=== PATIENT | male | born 2000 | race Caucasian/White ===

== ENCOUNTER 2020-03-09 22:33 | Emergency (ER) | payer MEDICAID, OTHER, SELFPAY ==
--- NOTE | 2020-03-09 22:35 | ED_ITS ---
HPI - URI/Sore Throat General: Stated Complaint: lost of taste Time Seen by Provider: 03/09/20 22:34 Source: patient Mode of arrival: ambulatory Limitations: no limitations History of Present Illness: HPI Narrative: 20-year-old male states that over last 2 to 3 days has had a slight cough low-grade fevers no loss of's taste and smell. He states his girlfriend was recently tested for Covid and has not had the results but she has had the same symptoms. Patient here is resting comfortably and has no other complaints at this time. Associated symptoms: Deny abdominal pain, chills, chest pain, diarrhea, fever(s), headache(s), nausea or vomiting Review of Systems Const: Denies: fever(s), chills, body aches or change in appetite Eyes: Denies: blurry vision or eye discomfort ENMT: Denies: throat pain or dental pain Card: Denies: chest pain Resp: Reports: non-productive cough; Denies: dyspnea GI: Denies: abdominal pain, nausea, vomiting or diarrhea : Denies: dysuria Musc: Denies: neck pain or back pain Skin/Breast: Denies: rash Neuro: Denies: headache(s) Psych: Denies: depression David/Lymph: Denies: easy bruising All/Imm: Denies: urticaria Physical Exam Const: COMMON NORMALS: no acute distress, patient oriented x3 and healthy appearing HENMT: COMMON NORMALS: normocephalic and atraumatic HEAD & SCALP: normocephalic and atraumatic Eye: COMMON NORMALS: Equal, round and reactive pupils present and EOMs intact bilaterally PUPIL: Yes Equal, round and reactive pupils present Neck/C-Spine: COMMON NORMALS: full ROM and supple Chest: COMMONS NORMALS: normal inspection of the chest and normal palpation of entire chest wall Resp: COMMON NORMALS: normal respiratory effort, No retractions, No use of accessory muscles and clear to auscultation bilaterally AUSCULTATION: clear to auscultation bilaterally Cardio: COMMON NORMALS: regular rate, regular rhythm and No murmurs present (Cardio) RATE: regular rate RHYTHM: regular rhythm GI: COMMON NORMALS: Normal to inspection, nondistended, normoactive bowel sounds present, Soft to palpation, non-tender and no masses PALPATION: Yes Soft to palpation Extremity: COMMON NORMALS: normal to inspection and full ROM Neuro: COMMON NORMALS: patient oriented x3, moves all extremities and no focal motor deficits Psych: COMMON NORMALS: mental status grossly normal, Normal thought process present and cooperative THOUGHT PROCESS: Normal thought process present Skin: COMMON NORMALS: no rashes or lesions noted and no wounds GENERAL SKIN EXAM: no rashes or lesions noted MDM - URI/Sore Throat MDM Narrative: Medical decision making narrative: Israel presents here with Covid-like symptoms. He is well-appearing here and in no distress. Will do a quest swab and he is stable for discharge. He is to follow-up with PCP and self quarantine. Discharge Plan Discharge Patient Disposition: Home Clinical Impression: Suspected 2019-nCoV infection Condition: Stable Discharge Orders: Discharge Order (Routine); Ordered 03/09/20 Ordered By: Brielle Guerra Referrals: Mingo Palmer MD [Family Provider] - 1-3 days Discharge Diet: Advance as tolerated Discharge Activity: Resume usual activity Patient Instructions: Upper Respiratory Infection (ED) Coding Level of Care Code ED Stripper Apprentice for Eyad Garcia
[2020-03-09 22:42] VITALS: BP 149/93; PULSE 79; RESP 18; TEMP 36.6; O2SAT 98; BMI 37.3
[2020-03-09 22:53] VITALS: O2SAT 98
[2020-03-11 23:43] LABS: Quest SARS-CoV-2 RNA NOT DETECTED (NOT DETECTED)
--- NOTE | 2020-03-12 09:57 | PC.NURSE ---
Patient notified of COVID results.
== END 2020-03-09 22:54 | disposition home or self-care (01) ==
PROVIDERS: Emergency Provider Emergency Medicine; PCP Family Medicine
DX: Z20.828 Contact with and (suspected) exposure to other viral communicable diseases (principal)
CPT/HCPCS: 12345; 87635; 99282

== ENCOUNTER → 2020-06-14 16:20 | Outpatient (BNVA) | payer OTHER, SELFPAY | PROVIDERS: PCP Family Medicine; Visit Provider Nurse Practitioner Family | DX: J06.9 Acute upper respiratory infection, unspecified (principal) | CPT/HCPCS: 87635 ==

== ENCOUNTER → 2020-07-31 15:08 | Outpatient (BNVA) | payer MEDICAID, SELFPAY | PROVIDERS: PCP Family Medicine; Visit Provider Nurse Practitioner Family | DX: R10.32 Left lower quadrant pain (principal) | CPT/HCPCS: 80053; 81000; 85025 ==

== ENCOUNTER 2020-08-11 23:41 | Emergency (ER) | payer MEDICAID, SELFPAY ==
[2020-08-11 23:45] VITALS: BP 164/93; PULSE 102; RESP 18; TEMP 36.5; O2SAT 97; BMI 37.0
--- NOTE | 2020-08-11 23:59 | ED_ITS ---
HPI - Abdominal Pain General: Chief Complaint: Abdominal Pain Stated Complaint: knot on abdomen Time Seen by Provider: 08/11/20 23:46 Source: patient Mode of arrival: ambulatory Limitations: no limitations History of Present Illness: HPI narrative: 20-year-old male states he been having abdominal pain over the last week. He states that he has had a knot in his abdomen that is tender to touch. States of his left lower abdomen. States his pain right now is a 1 out of 10. Denies any fever. He states it seems to be worse during the day. No history of known hernias. Associated Symptoms: Denies chills, diarrhea, dysuria, fever(s), nausea and vomiting Review of Systems Const: Denies: fever(s), chills, body aches or change in appetite Eyes: Denies: blurry vision or eye discomfort ENMT: Denies: throat pain or dental pain Card: Denies: chest pain Resp: Denies: dyspnea GI: Reports: abdominal pain; Denies: nausea, vomiting or diarrhea : Denies: dysuria Musc: Denies: neck pain or back pain Skin/Breast: Denies: rash Neuro: Denies: headache(s) Psych: Denies: depression David/Lymph: Denies: easy bruising All/Imm: Denies: urticaria PFSH ED PFSH: Social History Smoking and tobacco status: never smoked Second hand smoke exposure: No Smoking risk assessment/counseling performed?: No Alcohol intake: never Desire information about alcohol rehabilitation?: No Counseling given: No Desire information about substance/drug rehabilitation?: No Counseling given: No Adopted: No Caregiver/support person: No Lives independently: Yes Household members: family Housing: Manufactured/Mobile home Marital status: Single Number of children: 0 Highest education level completed: High School Graduate service: No Current occupational status: disabled History of recent travel: No Physical Exam Const: COMMON NORMALS: no acute distress, patient oriented x3 and healthy appearing HENMT: COMMON NORMALS: normocephalic and atraumatic HEAD & SCALP: normocephalic and atraumatic Eye: COMMON NORMALS: Equal, round and reactive pupils present and EOMs intact bilaterally PUPIL: Yes Equal, round and reactive pupils present Neck/C-Spine: COMMON NORMALS: full ROM and supple Chest: COMMONS NORMALS: normal inspection of the chest and normal palpation of entire chest wall Resp: COMMON NORMALS: normal respiratory effort, No retractions, No use of accessory muscles and clear to auscultation bilaterally AUSCULTATION: clear to auscultation bilaterally Cardio: COMMON NORMALS: regular rate, regular rhythm and No murmurs present (Cardio) RATE: regular rate RHYTHM: regular rhythm GI: COMMON NORMALS: Normal to inspection, nondistended, normoactive bowel sounds present, Soft to palpation, non-tender and no masses PALPATION: Yes Soft to palpation Extremity: COMMON NORMALS: normal to inspection and full ROM Neuro: COMMON NORMALS: patient oriented x3, moves all extremities and no focal motor deficits Psych: COMMON NORMALS: mental status grossly normal, Normal thought process present and cooperative THOUGHT PROCESS: Normal thought process present Skin: COMMON NORMALS: no rashes or lesions noted and no wounds GENERAL SKIN EXAM: no rashes or lesions noted Course Vital Signs: Vital signs: Vital Signs Temperature 97.7 F 08/11/20 23:45 Pulse Rate 102 H 08/11/20 23:45 Respiratory Rate 18 08/11/20 23:45 Blood Pressure 164/93 08/11/20 23:45 Pulse Oximetry 97 08/11/20 23:45 MDM - Abdominal Pain MDM Narrative: Medical decision making narrative: Israel presents with abdominal pain. He did have a area over his left rectus abdominis that was painful I believe is muscular in nature. He has no signs of intra-abdominal cause or surgical cause. He has no hernia palpated his pain is very minimal currently. He is stable for discharge will place him on Naprosyn. Discharge Plan Discharge Patient Disposition: Home Clinical Impression: Abdominal pain Qualifiers: Abdominal location: generalized Qualified Code(s): R10.84 - Generalized abdominal pain Condition: Stable Prescriptions: No Action No Known Home Medications RF: 0 Discharge Orders: Discharge ED (Routine); Ordered 08/11/20 Ordered By: Brielle Guerra Referrals: Mingo Palmer MD [Primary Care Provider] - 1-3 days Discharge Diet: Advance as tolerated Discharge Activity: Resume usual activity Patient Instructions: Abdominal Pain (ED) Coding Level of Care Code ED Promotions Officer for Eyad Garcia
[2020-08-12] MEDS: naproxen 500 mg Tablet PO (00:01)
[2020-08-12 00:07] VITALS: BP 164/93; PULSE 102; RESP 18; TEMP 36.5; O2SAT 97
== END 2020-08-12 00:07 | disposition home or self-care (01) ==
PROVIDERS: Emergency Provider Emergency Medicine; PCP Family Medicine
DX: R10.84 Generalized abdominal pain (principal)
CPT/HCPCS: 99282

== ENCOUNTER 2020-10-01 03:11 | Inpatient (IN) | payer MEDICAID, SELFPAY ==
[2020-10-01 03:13] VITALS: BP 128/89; PULSE 90; RESP 18; TEMP 36.9; O2SAT 98; BMI 33.9
[2020-10-01 03:31] LABS: Add Urine Microscopic? NO; Charge for UA Resulting for Rev
[2020-10-01 03:33] LABS: Bilirubin Urine 1+ (Negative); Blood Urine Neg (Negative); Glucose Urine UA Norm (Normal); Ketones Urine Negative (Negative); Leukocyte Esterase Urine Negative (Negative); Nitrate Urine Negative (Negative); Protein Urine Neg (Negative); Urine Appearance Clear (CLEAR); Urine Color Yellow (Yellow); Urobilinogen Urine 1 mg/dL (Negative); pH Urine 5 (5-7)
[2020-10-01 03:42] LABS: Amphetamines Screen Urine Negative (Negative); Barbiturates Screen Urine Negative (Negative); Benzodiazepines Screen Urine Negative (Negative); Cocaine Screen Urine Negative (Negative); Opiate Screen Urine Negative (Negative); PCP Screen Urine Negative (Negative); THC Screen Urine Negative (Negative)
[2020-10-01 03:42] LABS: Basophils # 0.1 10^3/uL (0.0-0.1); Basophils % 0.3 %; Eosinophils # 0.1 10^3/uL (0.0-0.8); Eosinophils % 0.4 %; Hematocrit 45.5 % (42.0-52.0); Hemoglobin 15.1 g/dL (11.7-16.6); Lymphocytes # 2.4 10^3/uL (1.5-6.5); Lymphocytes % 14.9 %; Mean Corpuscular HGB Conc 33.2 g/dL (30.0-36.0); Mean Corpuscular Hemoglobin 29.6 pg (28.0-34.0); Mean Corpuscular Volume 89.2 fL (80-94); Mean Platelet Volume 10.1 fL (7.4-10.4); Monocytes # 0.8 10^3/uL (0.2-0.9); Neutrophils # 12.39 10^3/uL (1.8-8.0); Neutrophils % 78.8 %; Nucleated Red Blood Cells % 0 %; Platelet Count 316 10^3/cmm (130-400); Red Cell Distribution Width 12.1 % (12.1-15.1); White Blood Count 15.7 10^3/uL (4.5-13.0)
--- NOTE | 2020-10-01 04:00 | ED_ITS ---
HPI - Psych General: Chief Complaint: Psychiatric Symptoms Stated Complaint: SI Time Seen by Provider: 10/01/20 03:16 History of Present Illness: HPI Narrative: 20-year-old male. He tells me is only medical history is that he has a high white blood cell count chronically. He and his significant other had a falling out earlier in the night, and he has been having thoughts about walking out in front of traffic. He has no prior psychiatric admission to this facility. He is on no medications. MD complaint: suicidal ideation Onset (ago): hour(s) Duration: constant History of same: No Relieving factors: none Exacerbating factors: none Associated psychiatric symptoms: depression and suicidal ideation Associated symptoms: Deny homicidal ideation If self harm: admits thoughts of self harm and has plan Review of Systems Const: Denies: fever(s) or chills Eyes: Denies: change in vision ENMT: Denies: throat pain, uvular edema or enlarged tonsils Card: Denies: chest pain, palpitations or irregular heart rhythm Resp: Denies: dyspnea, productive cough or non-productive cough GI: Denies: abdominal pain, nausea, vomiting, hematemesis, diarrhea or hematochezia Neuro: Reports: behavioral changes; Denies: headache(s), lack of coordination, frequent falls or dizziness Psych: Denies: homicidal ideation PFS ED PFSH: Social History Smoking and tobacco status: never smoked Second hand smoke exposure: No Smoking risk assessment/counseling performed?: No Alcohol intake: never Desire information about alcohol rehabilitation?: No Counseling given: No Desire information about substance/drug rehabilitation?: No Counseling given: No Adopted: No Caregiver/support person: No Lives independently: Yes Household members: family Housing: Manufactured/Mobile home Marital status: Single Number of children: 0 Highest education level completed: High School Graduate service: No Current occupational status: disabled History of recent travel: No Physical Exam Const: COMMON NORMALS: no acute distress, patient oriented x3 and alert HENMT: THROAT: no uvular edema Eye: COMMON NORMALS: Equal, round and reactive pupils present and EOMs intact bilaterally PUPIL: Yes Equal, round and reactive pupils present Chest: COMMONS NORMALS: normal inspection of the chest Resp: COMMON NORMALS: normal respiratory effort, No use of accessory muscles and clear to auscultation bilaterally AUSCULTATION: clear to auscultation sara aterally Cardio: COMMON NORMALS: regular rate, regular rhythm and No murmurs present (Cardio) RATE: regular rate RHYTHM: regular rhythm GI: INSPECTION: Yes normal to inspection, Yes Abdominal wall edema and Yes scaphoid Neuro: COMMON NORMALS: patient oriented x3 SENSORIUM/ORIENTATION: Yes alert Course Consultations: Consultation #1: franco Time: 04:13 Vital Signs: Vital signs: Vital Signs Temperature 98.4 F 10/01/20 03:13 Pulse Rate 90 10/01/20 03:13 Respiratory Rate 18 10/01/20 03:13 Blood Pressure 128/89 10/01/20 03:13 Pulse Oximetry 98 10/01/20 03:13 MDM - Psych MDM Narrative: Medical decision making narrative: 20-year-old male, evidently with a history of leukocytosis presents with suicidal ideation. He has been calm and cooperative. He is voluntary, completely. His white blood cell count is 15.7. His other labs are essentially normal. He will go to the neuropsychiatric unit. Lab Data: Labs: Lab Results 10/01/20 10/01/20 10/01/20 Range/Units 03:20 03:20 03:34 WBC 15.7 H (4.5-13.0) 10^3/ uL RBC 5.10 (4.1-5.3) 10^6/u L Hgb 15.1 (11.7-16.6) g/dL Hct 45.5 (42.0-52.0) % MCV 89.2 (80-94) fL MCH 29.6 (28.0-34.0) pg MCHC 33.2 (30.0-36.0) g/dL RDW 12.1 (12.1-15.1) % Plt Count 316 (130-400) 10^3/c mm MPV 10.1 (7.4-10.4) fL Neut % (Auto) 78.8 % Lymph % (Auto) 14.9 % [place] % (Auto) 5.0 % Eos % (Auto) 0.4 % Baso % (Auto) 0.3 % Neut # (Auto) 12.39 H (1.8-8.0) 10^3/u L Lymph # (Auto) 2.4 (1.5-6.5) 10^3/u L [place] # (Auto) 0.8 (0.2-0.9) 10^3/u L Eos # (Auto) 0.1 (0.0-0.8) 10^3/u L Baso # (Auto) 0.1 (0.0-0.1) 10^3/u L Nucleated RBC % (a uto) 0 % Nucleated RBCs # 0.0 /100WBC Sodium (136-145) mmol/L Potassium (3.5-5.1) mmol/L Chloride (98-107) mmol/L Carbon Dioxide (22-29) mmol/L Anion Gap (5-19) BUN (6-20) mg/dL Creatinine (0.7-1.2) mg/dL GFR Calculation (90-130) mL/min Glucose (65-115) mg/dL Calculated Osmolal ity (285-295) mOsm/k g Calcium (8.5-10.5) mg/dL Total Bilirubin (0.15-1.2) mg/dL AST (0-40) U/L ALT (0-41) U/L Alkaline Phosphata se (40-130) IU/L Total Protein (6.6-8.7) g/dL Albumin (3.5-5.2) g/dL Globulin (1.3-4.6) g/dL Urine Color Yellow (Yellow) Urine Appearance Clear (CLEAR) Urine pH 5 (5-7) Ur Specific Gravit y 1.020 (1.005-1.030) Urine Protein Neg (Negative) Urine Glucose (UA) Norm (Normal) Urine Ketones Negative (Negative) Urine Blood Neg (Negative) Urine Nitrate Negative (Negative) Urine Bilirubin 1+ H (Negative) Urine Urobilinogen 1 H (Negative) mg/dL Ur Leukocyte Mirna ase Negative (Negative) Salicylates (3-10) mg/dL Urine Opiates Scre en Negative (Negative) ng/mL Acetaminophen (10-30) ug/mL Ur Barbiturates Sc reen Negative (Negative) ng/mL Ur Phencyclidine S crn Negative (Negative) ng/mL Ur Amphetamines Sc reen Negative (Negative) ng/mL U Benzodiazepines Scrn Negative (Negative) ng/mL Urine Cocaine Scre en Negative (Negative) ng/mL U Marijuana (THC) Screen Negative (Negative) ng/mL Ethyl Alcohol (0-10) mg/dL 10/01/20 Range/Units 03:34 WBC (4.5-13.0) 10^3/ uL RBC (4.1-5.3) 10^6/u L Hgb (11.7-16.6) g/dL Hct (42.0-52.0) % MCV (80-94) fL MCH (28.0-34.0) pg MCHC (30.0-36.0) g/dL RDW (12.1-15.1) % Plt Count (130-400) 10^3/c mm MPV (7.4-10.4) fL Neut % (Auto) % Lymph % (Auto) % [place] % (Auto) % Eos % (Auto) % Baso % (Auto) % Neut # (Auto) (1.8-8.0) 10^3/u L Lymph # (Auto) (1.5-6.5) 10^3/u L [place] # (Auto) (0.2-0.9) 10^3/u L Eos # (Auto) (0.0-0.8) 10^3/u L Baso # (Auto) (0.0-0.1) 10^3/u L Nucleated RBC % (a uto) % Nucleated RBCs # /100WBC Sodium 143 (136-145) mmol/L Potassium 4.1 (3.5-5.1) mmol/L Chloride 107 (98-107) mmol/L Carbon Dioxide 25 (22-29) mmol/L Anion Gap 15.1 (5-19) BUN 16 (6-20) mg/dL Creatinine 0.8 (0.7-1.2) mg/dL GFR Calculation 123.2 (90-130) mL/min Glucose 105 (65-115) mg/dL Calculated Osmolal ity 298 H (285-295) mOsm/k g Calcium 9.0 (8.5-10.5) mg/dL Total Bilirubin 0.2 (0.15-1.2) mg/dL AST 21 (0-40) U/L ALT 29 (0-41) U/L Alkaline Phosphata se 84 (40-130) IU/L Total Protein 7.2 (6.6-8.7) g/dL Albumin 4.6 (3.5-5.2) g/dL Globulin 2.6 (1.3-4.6) g/dL Urine Color (Yellow) Urine Appearance (CLEAR) Urine pH (5-7) Ur Specific Gravit y (1.005-1.030) Urine Protein (Negative) Urine Glucose (UA) (Normal) Urine Ketones (Negative) Urine Blood (Negative) Urine Nitrate (Negative) Urine Bilirubin (Negative) Urine Urobilinogen (Negative) mg/dL Ur Leukocyte Mirna ase (Negative) Salicylates < 0.3 L (3-10) mg/dL Urine Opiates Scre en (Negative) ng/mL Acetaminophen < 5.0 L (10-30) ug/mL Ur Barbiturates Sc reen (Negative) ng/mL Ur Phencyclidine S crn (Negative) ng/mL Ur Amphetamines Sc reen (Negative) ng/mL U Benzodiazepines Scrn (Negative) ng/mL Urine Cocaine Scre en (Negative) ng/mL U Marijuana (THC) Screen (Negative) ng/mL Ethyl Alcohol 11 H (0-10) mg/dL Discharge Plan Discharge Patient Disposition: Admitted As Inpatient Clinical Impression: Suicidal ideation Condition: Stable Coding Level of Care Code ED Psychologist Research Assistant for Eyad Garcia Exam Detailed
[2020-10-01 04:03] LABS: Alanine Aminotransferase 29 U/L (0-41); Albumin Level 4.6 g/dL (3.5-5.2); Alcohol Level 11 mg/dL (0-10); Alkaline Phosphatase 84 IU/L (40-130); Anion Gap 15.1 (5-19); Aspartate Amino Transferase 21 U/L (0-40); Blood Urea Nitrogen 16 mg/dL (6-20); Carbon Dioxide 25 mmol/L (22-29); Chloride 107 mmol/L (98-107); Creatinine Clr Calc Pharmacy 191.4983; Globulin 2.6 g/dL (1.3-4.6); Glomerular Filtration Rate 123.2 mL/min (90-130); Glucose 105 mg/dL (65-115); Osmolality Calculated 298 mOsm/kg (285-295); Potassium 4.1 mmol/L (3.5-5.1); Sodium 143 mmol/L (136-145); Total Bilirubin 0.2 mg/dL (0.15-1.2); Total Protein 7.2 g/dL (6.6-8.7)
[2020-10-01 04:05] LABS: Acetaminophen < 5.0 ug/mL (10-30); Salicylate < 0.3 mg/dL (3-10)
[2020-10-01 04:41] VITALS: BP 126/68; PULSE 78; PULSE 79; RESP 14; RESP 15; O2SAT 97
[2020-10-01 05:06] VITALS: BP 138/71; PULSE 86; RESP 18; TEMP 36.7; O2SAT 94
[2020-10-01 05:20] VITALS: BP 138/71; PULSE 86; RESP 18; TEMP 36.7; O2SAT 94
--- NOTE | 2020-10-01 10:13 | PM.NHP ---
Providers/Chief Complaint Admitting Physician: Aditi Srivastava DO Primary Care Provider: Mingo Palmer MD Chief Complaint: SI HPI NPU History of Present Illness Israel Dean is a 20 year old male with history of depression and anxiety and anger issues presented to the emergency department with suicidal ideation after an argument with his girlfriend. Patient states that he has not been on any antidepressant medication for over a year and intermittently has episodes of increased irritability and anger secondary to poor frustration tolerance but also has intermittent depressive symptoms that are typically exacerbated by frustration and anger. Patient has difficulty describing any past or recent major depressive episodes but does report recent worsening depressive symptoms in the context of ongoing stressors. He denies any current suicidal ideation or thoughts about self-harm and denies any history of suicide attempts or self-harm behavior. Patient does report coping strategy of punching old refrigerators but denies any history of assaultive behavior or harming anyone else whenever he has irritability or anger. He denies any past or recent hypomanic or manic episodes. Denies past or recent auditory or visual destinations, denies any delusions. Patient reports intermittent anxiety symptoms related ongoing stressors, denies any daily or sustained anxiety symptoms, denies past or recent panic symptoms. Patient states that he had previously been seen by primary care for treatment of depressive and anxiety symptoms but is not seeing anyone or taken medication for about a year. He does report past history of a psychiatric hospitalization as an adolescent at age 16 for irritability, depressive symptoms with no subsequent hospitalizations. Patient reports supporting himself by living with family and getting disability for learning disorders. Denies past or current use of any alcohol or illicit substances. Review of Systems General: Reports: 10 or more systems reviewed and unremarkable except in HPI and below Meds NPU Home Medications Medication Instructions Recorded Confirmed Last Taken Type No Known Home Medications 05/15/20 08/04/20 Unknown History Allergies Allergy/AdvReac Type Severity Reaction Status Date / Time Penicillins Allergy blacks Verified 10/01/20 03:24 outs- trouble breathing - rash PFSH NPU PFSH: Social History Smoking and tobacco status: never smoked Second hand smoke exposure: No Smoking risk assessment/counseling performed?: No Alcohol intake: never Desire information about alcohol rehabilitation?: No Counseling given: No Desire information about substance/drug rehabilitation?: No Counseling given: No Adopted: No Caregiver/support person: No Lives independently: Yes Household members: family Housing: Manufactured/Mobile home Marital status: Single Number of children: 0 Highest education level completed: High School Graduate service: No Current occupational status: disabled History of recent travel: No Other Psychiatric History: Other Psychiatric History: Per HPI above. Treated by primary care with antidepressant, last took a year ago. Psychiatric hospitalization at age 16 Denies any history of suicide attempt or self-harm behavior Mental Status Exam MSE Comments: Calm, quiet, cooperative and polite, large framed individual, unshaven, wearing hospital scrubs, tired appearing, good eye contact Psychomotor activity is neither increased nor decreased, no agitation Speech is somewhat slow, normal volume, fair articulation, not pressured I feel depressed, congruent affect, constricted, not labile Alert and oriented to person, place, time, situation Memory and concentration appear to be intact per interview Intellectual functioning appears to be below average per history, vocabulary, interview Thought process, occasional delays but linear, no flight of ideas, no looseness of associations Thought content, no delusions, no hallucinations, no suicidal or homicidal ideation Insight and judgment appear to be intact Vitals/I&O/Wt Last Vital Signs Temp 98.0 F 10/01/20 05:20 Pulse 86 10/01/20 05:20 Resp 18 10/01/20 05:20 BP 138/71 10/01/20 05:20 Pulse Ox 94 10/01/20 05:20 Weight last 48 hrs Weight 113.398 kg Weight 113.398 kg Data NPU : 10/01/20 03:34 10/01/20 03:34 A&P Assessment and plan (1) Depressive disorder: Status: Acute (2) Adjustment disorder with mixed anxiety and depressed mood: Status: Acute (3) Suicidal ideation: Status: Acute Additional A&P Information 20-year-old male with history of depressive and anxiety disorder as well as anger and irritability issues with history of learning disorders presented to the emergency department after argument with girlfriend and suicidal ideation. Currently denying any suicidal ideation but continues to report depressive symptoms and states that he has been off of medication for about a year. Patient would benefit from restarting low-dose antidepressant under observation with coordination for safe discharge. VOLUNTARY ADMIT to inpatient psychiatry START citalopram 10 mg daily targeting depressive and anxiety symptoms START buspirone 5 mg 3 times daily targeting anxiety symptoms and augmenting antidepressant Encourage patient to participate in unit activities, unit milieu Coordinate with licensed clinical social worker for post discharge mental health follow-up to include counseling targeting issues with anger and irritability, low frustration tolerance Involuntary Hold Information 96 Hour Hold: 96 Hour Involuntary Admission: No Attestations NPU Medical Necessity Statement*: Psychiatric hospitalization indicated for medication stabilization, observation for any continued suicidal ideation or behaviors, coordination for safe discharge Anticipate hospital stay to exceed 2 midnights Time Spent in Patient Care: Greater than 35 minutes (>than 50% of time spent in counselling and/or direct pt care on unit). Coding Level of Care Code Acute Director Global Intelligence for Eyad Fwd Diagnoses Depressive disorder F32.9 Adjustment disorder with mixed anxiety and depressed mood F43.23 Suicidal ideation R45.858
[2020-10-01] MEDS: BuSPIRONE 10 mg Tablet 5 MG PO ×3 (10:47→19:52)
[2020-10-01] MEDS: citalopram 20 mg Tablet 10 MG PO (10:47)
[2020-10-01 14:00] VITALS: BP 120/74; PULSE 60; RESP 16; TEMP 36.6; O2SAT 98
[2020-10-01 20:21] VITALS: BP 123/66; PULSE 78; RESP 17; TEMP 36.9; O2SAT 97
[2020-10-02 06:00] VITALS: BP 120/67; PULSE 74; RESP 14; TEMP 36.4; O2SAT 96
[2020-10-02] MEDS: citalopram 20 mg Tablet 10 MG PO (08:12)
[2020-10-02] MEDS: BuSPIRONE 10 mg Tablet 5 MG PO ×3 (08:12→19:29)
--- NOTE | 2020-10-02 11:07 | P.PN_ITS ---
Subjective NPU Subjective: Interval history: Reports improvement, denies any interval depressive symptoms, denies any interval suicidal ideation Denies any interval psychotic symptoms Reports being compliant with medication, denies any medication side effects Reports sleeping well Reports that his appetite is been good Mental Status Exam MSE Comments: Appears stated age, malodorous, wearing hospital scrubs, calm, cooperative, good eye contact Psychomotor activity is neither increased nor decreased, no agitation Speech is somewhat slow, normal volume, fair articulation, not pressured I feel better, congruent affect, constricted, not labile Alert and oriented to person, place, time, situation Memory and concentration appear to be intact per interview Thought process, linear, no flight of ideas, no looseness of associations Thought content, no delusions, no hallucinations, no suicidal or homicidal ideation Insight and judgment appear to be intact Vitals/I&O/Wt Last Vital Signs Temp 97.5 F L 10/02/20 06:00 Pulse 74 10/02/20 06:00 Resp 14 10/02/20 06:00 BP 120/67 10/02/20 06:00 Pulse Ox 96 10/02/20 06:00 Weight last 48 hrs Weight 113.398 kg Weight 113.398 kg Data NPU : 10/01/20 03:34 10/01/20 03:34 A&P Assessment and plan (1) Suicidal ideation: Status: Acute (2) Adjustment disorder with mixed anxiety and depressed mood: Status: Acute (3) Depressive disorder: Status: Acute Additional A&P Information Reports improvement in mood, denies any interval suicidal ideation, tolerating medication well CONTINUE current medication, continue to monitor Involuntary Hold Information 96 Hour Hold: 96 Hour Involuntary Admission: No Attestations NPU Medical Necessity Statement*: Continues to require psychiatric hospitalization for medication stabilization, coordination for safe discharge Coding Level of Care Code Acute Correctional Treatment Specialist for jason Fwd Diagnoses Suicidal ideation R45.851 Adjustment disorder with mixed anxiety and depressed mood F43.23 Depressive disorder F32.9
[2020-10-02 13:28] VITALS: BP 135/67; PULSE 79; RESP 16; TEMP 37.2; O2SAT 97
--- NOTE | 2020-10-02 15:55 | PC.NURSE ---
Shift Summary Patient went to both groups and interacted. Patient did not seem withdrawn and was pleasant with interactions with staff and other patients.
[2020-10-02 20:04] VITALS: BP 141/72; PULSE 83; RESP 17; TEMP 36.4; O2SAT 98
[2020-10-03 06:00] VITALS: BP 104/62; PULSE 63; RESP 15; TEMP 36.4; O2SAT 98
[2020-10-03] MEDS: citalopram 20 mg Tablet 10 MG PO (08:48)
[2020-10-03] MEDS: BuSPIRONE 10 mg Tablet 5 MG PO (08:48)
--- NOTE | 2020-10-03 09:16 | PM.NDC ---
Diagnoses at Discharge Discharge Diagnosis (1) Suicidal ideation: Status: Acute (2) Adjustment disorder with mixed anxiety and depressed mood: Status: Acute (3) Depressive disorder: Status: Acute Reason for Visit Reason for Visit: SI Hospital Course Hospital Course 20 year old male with history of depression and anxiety and anger issues presented to the emergency department with suicidal ideation after an argument with his girlfriend. Patient states that he has not been on any antidepressant medication for over a year and intermittently has episodes of increased irritability and anger secondary to poor frustration tolerance but also has intermittent depressive symptoms that are typically exacerbated by frustration and anger. Patient quickly reconstituted after being started back on his previous medication regimen of citalopram 10 mg daily and buspirone 5 mg 3 times daily with no reports of any medication side effects. Patient participate in unit milieu with no reports of any behavioral disturbances. Patient was not suicidal at the time of discharge and did not appear to pose an imminent threat of harm to self or others. Low to moderate risk of harm to self given no current suicidal ideation and no current psychiatric symptoms although patient's risk may be elevated if he used any substances or is noncompliant with his medication or medication management follow-up leading to unexpected, impulsive behavior. Risk mitigation included psychiatric hospitalization for observation for any worsening suicidal ideation or behaviors, medication stabilization, recommendation to maintain compliance with his medication and medication management follow-up as well as post discharge counseling targeting the development of more adaptive coping strategies to target how he handles his low frustration tolerance in the context of life stressors. Patient communicated his understanding of the need to be compliant with post discharge counseling in order to develop better coping strategies, compliance with medication medication management follow-up in order to further mitigate his risk of harm to self and others. Involuntary Hold Information 96 Hour Hold: 96 Hour Involuntary Admission: No Mental Status Exam MSE Comments: Lying in bed, appropriately groomed and dressed wearing hospital scrubs, calm, cooperative, good eye contact Psychomotor activity is neither increased nor decreased, no agitation Speech is slow, normal volume, fair articulation, not pressured I feel good, congruent affect, constricted, not labile Alert and oriented to person, place, time, situation Memory and concentration appear to be intact per interview Thought process, linear, no flight of ideas, no looseness of associations Thought content, no delusions, no hallucinations, no suicidal or homicidal ideation Insight and judgment appear to be intact Discharge Data Vitals: Last Vital Signs Temp 97.5 F L 10/03/20 06:00 Pulse 63 10/03/20 06:00 Resp 15 10/03/20 06:00 BP 104/62 10/03/20 06:00 Pulse Ox 98 10/03/20 06:00 Discharge Plan Discharge Patient Disposition: Home Condition: Stable Prescriptions: New buspirone 10 mg Tablet 5 mg PO TID Qty: 90 RF: 0 citalopram 20 mg Tablet 10 mg PO DAILY Qty: 30 RF: 0 No Action No Known Home Medications RF: 0 Discharge Orders: Discharge Order (Routine); Ordered 10/03/20 Ordered By: Aditi Srivastava Referrals: Mingo Palmer MD [Primary Care Provider] - Discharge Diet: Regular Discharge Activity: Resume usual activity Patient Instructions: Opioid Safety Discharge Attestations NPU Time Spent in Discharge Care*: greater than 30 min Status at Discharge: Cognitive status at discharge: cognitively intact, Behavioral status at discharge: cooperative, Functional status at discharge: independent ambulation Overall status at discharge: patient is back to baseline Coding Level of Care Code Acute [facility]g [facility] note Diagnoses Suicidal ideation R45.851 Adjustment disorder with mixed anxiety and depressed mood F43.23 Depressive disorder F32.9
[2020-10-03 09:24] VITALS: BP 104/62; PULSE 63; RESP 15; TEMP 36.4; O2SAT 98
== END 2020-10-03 09:55 | disposition home or self-care (01) | DRG 882 ==
LOC: ER 04:10 → NP 04:17
PROVIDERS: Admitting Provider Psychiatry & Neurology Psychiatry; Emergency Provider Emergency Medicine; PCP Family Medicine; Visit Provider Psychiatry & Neurology Psychiatry
DX: F43.23 Adjustment disorder with mixed anxiety and depressed mood (principal); R45.851 Suicidal ideations
CPT/HCPCS: 80053; 80306; 80307; 81003; 85025; 99285

== ENCOUNTER → 2021-01-03 16:22 | Outpatient (BNVA) | payer MEDICAID, SELFPAY | PROVIDERS: PCP Family Medicine; Visit Provider Nurse Practitioner Family | DX: M25.561 Pain in right knee (principal) | CPT/HCPCS: 73562 ==

== ENCOUNTER 2021-09-30 18:16 | Emergency (ER) | payer MEDICAID, SELFPAY ==
[2021-09-30] VITALS (8 sets, daily range): BP systolic 107–160; BP diastolic 42–99; PULSE 94–222; RESP 18–24; TEMP 37.1–38.2; O2SAT 94–98
--- NOTE | 2021-09-30 18:27 | ECG_ITS ---
[facility] Test Date: 2021-09-30 Pat Name: Israel Dean Department: Room: Gender: Male Order Editor: : 2000 Requested By: Lizeth Moseley Order Number: [id number] Lisandro MD: Ugo Fairchild M.D. Measurements Intervals Pinon Rate: 109 P: 48 SC: 134 QRS: 64 QRSD: 81 T: -5 QT: 303 QTc: 408 Interpretive Statements SINUS TACHYCARDIA NONSPECIFIC T-WAVE ABNORMALITY No previous ECG available for comparison Electronically Signed On 09-30-2021 22:47:13 CDT by Ugo Fairchild M.D. [id number]
--- NOTE | 2021-09-30 18:27 | XRR_ITS ---
PROCEDURE INFORMATION: Exam: XR Chest Exam date and time: 09/30/2021 7:24 PM Age: 21 years old Clinical indication: Cough and shortness of breath; Patient HX: C/O cough and SOB x 2 days; Additional info: Dyspnea TECHNIQUE: Imaging protocol: XR of the chest. Views: 2 views. COMPARISON: No relevant prior studies available. FINDINGS: Lungs: Unremarkable. No consolidation. Pleural spaces: No pleural effusion. No pneumothorax. Heart/Mediastinum: Unremarkable. No cardiomegaly. Bones/joints: Unremarkable. XR/XR chest 2V* [id number] IMPRESSION: No acute abnormality demonstrated.
[2021-09-30] MEDS: acetaminophen 500 mg Tablet 1000 MG PO (19:28)
--- NOTE | 2021-09-30 20:02 | CTR_ITS ---
PROCEDURE INFORMATION: Exam: CTA Chest With Contrast Exam date and time: 09/30/2021 8:33 PM Age: 21 years old Clinical indication: Cough and shortness of breath; Patient HX: C/O cough and SOB x 2 days now w cp and near syncope; Additional info: Sudden onset of chest pain, near syncope TECHNIQUE: Imaging protocol: Computed tomographic angiography of the chest with contrast. 3D rendering (Not supervised by radiologist): MIP and/or 3D reconstructed images were created by the technologist. Radiation optimization: All CT scans at this facility use at least one of these dose optimization techniques: automated exposure control; mA and/or kV adjustment per patient size (includes targeted exams where dose is matched to clinical indication); or iterative reconstruction. Contrast material: OMNI 350; Contrast volume: 70 ml; Contrast route: INTRAVENOUS (IV); COMPARISON: CR (CHEST, ) 09/30/2021 7:24 PM RADIATION DOSE METRICS: Total DLP (mGy-cm): 547.38 FINDINGS: Limitations: The study is slightly limited by mild patient respiratory motion artifact. This limits assessment of the most peripheral branches of the bilateral lower lobe pulmonary arteries. Pulmonary arteries: No evidence of pulmonary embolism, within the technical limits of the examination. Pulmonary arteries are normal in caliber. No filling defects are demonstrated. No evidence of pulmonary embolism. Aorta: The thoracic aorta appears unremarkable. No aneurysm or dissection demonstrated. Lungs: The No consolidative pulmonary infiltrates are noted. Pleural spaces: No pleural effusion or pneumothorax noted. Heart: No cardiomegaly. No pericardial effusion. Lymph nodes: Unremarkable. No enlarged lymph nodes. Bones/joints: Unremarkable. No acute osseous abnormality. Soft tissues: Unremarkable. CT/CT angio chest PE protcl [id number] IMPRESSION: 1. The study is slightly limited by mild patient respiratory motion artifact. This limits assessment of the most peripheral branches of the bilateral lower lobe pulmonary arteries. 2. Pulmonary arteries appear unremarkable. 3. No evidence of thoracic aortic aneurysm or dissection.
[2021-09-30] MEDS: sodium chloride 0.9% 1,000 ML 999 ML IV ×2 (20:03→21:09)
[2021-09-30 20:13] LABS: Basophils # 0.1 10^3/uL (0.0-0.1); Basophils % 0.4 %; Eosinophils # 0.1 10^3/uL (0.0-0.8); Eosinophils % 0.8 %; Hematocrit 42.1 % (42.0-52.0); Hemoglobin 14.3 g/dL (11.7-16.6); Lymphocytes # 1.3 10^3/uL (0.8-4.8); Lymphocytes % 10.1 %; Mean Corpuscular Hemoglobin 29.6 pg (28.0-34.0); Mean Corpuscular Volume 87.2 fl (80-94); Monocytes # 1.1 10^3/uL (0.2-0.9); Neutrophils # 10.44 10^3/uL (1.8-7.7); Nucleated Red Blood Cells % 0 %; Platelet Count 272 10^3/cmm (130-400); Red Blood Count 4.83 10^6/uL (4.1-5.3); Red Cell Distribution Width 12.4 % (12.1-15.1); White Blood Count 13.1 10^3/uL (4.0-10.0)
--- NOTE | 2021-09-30 20:16 | ED_ITS ---
HPI - General Adult General: Chief complaint: Shortness of Breath/Dyspnea Stated complaint: sob Time Seen by Provider: 09/30/21 18:55 History of Present Illness: Patient is a 21-year-old male without any significant past medical history presents emergency room with complaints of cough x2 days, fever x2 days and sudden onset of chest pain and lightheadedness since 7 AM this morning. Patient tells me that for the last 2 days, he has been feeling increasingly more tired. Patient Onset:2 days of fever/chill, sudden onset of chest pain and light-headedness at 7am Duration:ongoing Location:home Severity:moderate Associated symptoms: Reports dyspnea; Deny chest pain, nausea, rash, palpitations or vomiting Review of Systems Const: Reports: fever(s) and chills Eyes: Denies: change in vision ENMT: Denies: mouth pain Card: Denies: chest pain or palpitations Resp: Reports: dyspnea and non-productive cough GI: Denies: abdominal pain, nausea, vomiting or diarrhea : Denies: dysuria Musc: Denies: extremity pain Skin/Breast: Denies: rash or new lesions Neuro: Denies: weakness in extremities Psych: Reports: other (Normal mood) David/Lymph: Denies: easy bruising PFSH ED PFSH: Medical History No pertinent past medical history Social History Second hand smoke exposure: No Smoking risk assessment/counseling performed?: No Alcohol intake: never Desire information about alcohol rehabilitation?: No Counseling given: No Desire information about substance/drug rehabilitation?: No Counseling given: No Adopted: No Caregiver/support person: No Lives independently: Yes Household members: family Housing: Manufactured/Mobile home Marital status: Single Number of children: 0 Highest education level completed: High School Graduate service: No Current occupational status: disabled History of recent travel: No Physical Exam Const: COMMON NORMALS: alert HENMT: COMMON NORMALS: atraumatic HEAD & SCALP: atraumatic MOUTH: moist mucous membranes not abnormal Eye: COMMON NORMALS: EOMs intact bilaterally and conjunctivae normal CONJUNCTIVA: Yes conjunctivae normal Neck/C-Spine: COMMON NORMALS: full ROM and supple Resp: COMMON NORMALS: normal respiratory effort and clear to auscultation bilaterally AUSCULTATION: clear to auscultation bilaterally Cardio: RATE: tachycardic GI: COMMON NORMALS: Soft to palpation and non-tender PALPATION: Yes Soft to palpation Extremity: COMMON NORMALS: full ROM Neuro: SENSORIUM/ORIENTATION: Yes alert MOTOR EXAM: No Abnormal motor strength present and Other motor observations present (no focal motor deficits) Psych: COMMON NORMALS: speech normal SPEECH: Yes normal speech MOOD & AFFECT: Yes euthymic mood Course Vital Signs: Vital signs: Vital Signs Temperature 98.7 F 09/30/21 21:03 Pulse Rate 98 09/30/21 23:17 Respiratory Rate 20 H 09/30/21 23:17 Blood Pressure 149/70 09/30/21 23:17 Pulse Oximetry 98 09/30/21 23:17 [facility] - General Adult Medical Decision Making 21-year-old male with no significant past medical history presents emergency room with sudden onset of chest pain and lightheadedness since 7 AM this morning upon awakening setting of fever and cough x2 days. On physical exam, patient is febrile to 100.8 degrees, tachycardic to 110s. Lungs appears to be clear bilaterally. Received 2 L of fluid with improvement in heart rate. Fever improved with Tylenol. Swab sent at this time. X-ray chest negative for any finding. Given sudden onset of chest pain and lightheadedness around 7 AM has been persistent, decision was made to order CTA for evaluation of PE. CT negati ve for any findings of PE. At the present time, for patient feel reports feeling symptomatically improved. He has no signs of desaturation while observed in the emergency room. Patient is able to tolerate p.o. without difficulty. TSH/T4 within normal limit. Troponin within normal limit. Do not suspect ACS or myocarditis. Heart rate improved after 2 L IVF. Rx tylenol 500mg PRN fever and pain Disposition: Discharge. Patient counseled regarding diagnostic impression, treatment plan. Patient given ED strict return precautions to return for continuation, worsening, or development of new symptoms. Instructed to f/u w/ PCP regarding symptoms today. Patient verbalized understanding. Lab Data : 09/30/21 20:05 09/30/21 20:05 Radiology Impressions Chest X-Ray 09/30/21 18:27 IMPRESSION: No acute abnormality demonstrated. Chest CTA 09/30/21 20:02 IMPRESSION: 1. The study is slightly limited by mild patient respiratory motion artifact. This limits assessment of the most peripheral branches of the bilateral lower lobe pulmonary arteries. 2. Pulmonary arteries appear unremarkable. 3. No evidence of thoracic aortic aneurysm or dissection. Laboratory Results WBC 13.1 10^3/uL (4.0-10.0) H 09/30/21 20:05 RBC 4.83 10^6/uL (4.1-5.3) 09/30/21 20:05 Hgb 14.3 g/dL (11.7-16.6) 09/30/21 20:05 Hct 42.1 % (42.0-52.0) 09/30/21 20:05 MCV 87.2 fl (80-94) 09/30/21 20:05 MCH 29.6 pg (28.0-34.0) 09/30/21 20:05 MCHC 34.0 g/dL (30.0-36.0) 09/30/21 20:05 RDW 12.4 % (12.1-15.1) 09/30/21 20:05 Plt Count 272 10^3/cmm (130-400) 09/30/21 20:05 MPV 10.0 fL (7.4-10.4) 09/30/21 20:05 Neut % (Auto) 80.0 % 09/30/21 20:05 Lymph % (Auto) 10.1 % 09/30/21 20:05 Centre % (Auto) 8.0 % 09/30/21 20:05 Eos % (Auto) 0.8 % 09/30/21 20:05 Baso % (Auto) 0.4 % 09/30/21 20:05 Neut # (Auto) 10.44 10^3/uL (1.8-7.7) H 09/30/21 20:05 Lymph # (Auto) 1.3 10^3/uL (0.8-4.8) 09/30/21 20:05 Centre # (Auto) 1.1 10^3/uL (0.2-0.9) H 09/30/21 20:05 Eos # (Auto) 0.1 10^3/uL (0.0-0.8) 09/30/21 20:05 Baso # (Auto) 0.1 10^3/uL (0.0-0.1) 09/30/21 20:05 Nucleated RBC % (auto) 0 % 09/30/21 20:05 Nucleated RBCs # 0.0 /100WBC 09/30/21 20:05 Sodium 136 mmol/L (136-145) 09/30/21 20:05 Potassium 3.7 mmol/L (3.5-5.1) 09/30/21 20:05 Chloride 102 mmol/L (98-107) 09/30/21 20:05 Carbon Dioxide 23 mmol/L (22-29) 09/30/21 20:05 Anion Gap 14.7 (5-19) 09/30/21 20:05 BUN 10 mg/dL (6-20) 09/30/21 20:05 Creatinine 0.8 mg/dL (0.7-1.2) 09/30/21 20:05 GFR Calculation 122.0 mL/min (90-130) 09/30/21 20:05 Glucose 100 mg/dL (65-115) 09/30/21 20:05 Calculated Osmolality 281 mOsm/kg (285-295) L 09/30/21 20:05 Calcium 9.0 mg/dL (8.5-10.5) 09/30/21 20:05 Troponin T Gen 5 ng/L 10 ng/L (0-15) 09/30/21 20:05 TSH 1.30 uIU/mL (0.27-4.20) 09/30/21 20:05 Free T4 0.84 ng/dL (0.82-1.77) 09/30/21 20:05 Coronavirus 229E (PCR) Not detected (NOT DETECT) 09/30/21 21:05 Human Metapneumovir PCR Not detected (NOT DETECT) 09/30/21 23:14 Influenza Type A Ag Negative (Negative) 09/30/21 21:05 Influenza Type B Ag Negative (Negative) 09/30/21 21:05 Entero/Rhino (PCR) Detected (NOT DETECT) A 09/30/21 23:14 SARS-CoV-2 (PCR) Not detected (NOT DETECT) 09/30/21 21:05 Imaging Data Other Imaging: Radiologist's impression: [address] [address] [address] Scan Report Signed Patient: Israel Dean Unit #: [id number] : 2000 Age/Sex: 21 / M ADM Date: 09/30/21 Loc: ER Room/Bed: Attending Dr: Ordering Provider/Ordering MD: Lizeth Moseley MD Date of Service: 09/30/21 Procedure(s): CT angio chest PE protcl [id number] Accession Number(s): [id number] Report Number: [id number] PROCEDURE INFORMATION: Exam: CTA Chest With Contrast Exam date and time: 09/30/2021 8:33 PM Age: 21 years old Clinical indication: Cough and shortness of breath; Patient HX: C/O cough and SOB x 2 days now w cp and near syncope; Additional info: Sudden onset of chest pain, near syncope TECHNIQUE: Imaging protocol: Computed tomographic angiography of the chest with contrast. 3D rendering (Not supervised by radiologist): MIP and/or 3D reconstructed images were created by the technologist. Radiation optimization: All CT scans at this facility use at least one of these dose optimization techniques: automated exposure control; mA and/or kV adjustment per patient size (includes targeted exams where dose is matched to clinical indication); or iterative reconstruction. Contrast material: OMNI 350; Contrast volume: 70 ml; Contrast route: INTRAVENOUS (IV);? COMPARISON: CR (CHEST, ) 09/30/2021 7:24 PM RADIATION DOSE METRICS: Total DLP (mGy-cm): 547.38 FINDINGS: Limitations: The study is slightly limited by mild patient respiratory motion artifact. This limits assessment of the most peripheral branches of the bilateral lower lobe pulmonary arteries. Pulmonary arteries: No evidence of pulmonary embolism, within the technical limits of the examination. Pulmonary arteries are normal in caliber. No filling defects are demonstrated. No evidence of pulmonary embolism. Aorta: The thoracic aorta appears unremarkable. No aneurysm or dissection demonstrated. Lungs: The No consolidative pulmonary infiltrates are noted. Pleural spaces: No pleural effusion or pneumothorax noted. Heart: No cardiomegaly. No pericardial effusion. Lymph nodes: Unremarkable. No enlarged lymph nodes. Bones/joints: Unremarkable. No acute osseous abnormality. Soft tissues: Unremarkable. CT/CT angio chest PE protcl [id number] IMPRESSION: 1. The study is slightly limited by mild patient respiratory motion artifact. This limits assessment of the most peripheral branches of the bilateral lower lobe pulmonary arteries. 2. Pulmonary arteries appear unremarkable. 3. No evidence of thoracic aortic aneurysm or dissection. ? Dictated By: Jamar Mo MD Signed By: Jamar Mo MD Signed Date/Time: 09/30/212102 DD/ [address] [address] XRay Report Signed Patient: Israel Dean Unit #: [id number] : 2000 Age/Sex: 21 / M ADM Date: 09/30/21 Loc: ER Room/Bed: Attending Dr: Ordering Provider/Ordering MD: Lizeth Moseley MD Date of Service: 09/30/21 Procedure(s): XR chest 2V* [id number] Accession Number(s): [id number] Report Number: [id number] PROCEDURE INFORMATION: Exam: XR Chest Exam date and time: 09/30/2021 7:24 PM Age: 21 years old Clinical indication: Cough and shortness of breath; Patient HX: C/O cough and SOB x 2 days; Additional info: Dyspnea TECHNIQUE: Imaging protocol: XR of the chest. Views: 2 views. COMPARISON: No relevant prior studies available. FINDINGS: Lungs: Unremarkable. No consolidation. Pleural spaces: No pleural effusion. No pneumothorax. Heart/Mediastinum: Unremarkable. No cardiomegaly. Bones/joints: Unremarkable. XR/XR chest 2V* [id number] IMPRESSION: No acute abnormality demonstrated. ? Dictated By: Jamar Mo MD Signed By: Jamar Mo MD Signed Date/Time: 09/30/212011 DD/ 23 Discharge Plan Discharge Patient Disposition: Home Clinical Impression: Fever, Cough, Chest pain Condition: Stable Prescriptions: New acetaminophen 500 mg tablet 500 mg PO Q6H PRN (Reason: pain) 5 Days Qty: 20 0RF No Action diclofenac sodium 75 mg tablet,delayed release (DR/EC) 75 mg PO BID PRN (Reason: pain) Qty: 30 0RF clindamycin HCl 300 mg capsule 300 mg PO BID 7 Days Qty: 14 0RF citalopram 20 mg Tablet 10 mg PO DAILY Qty: 30 0RF buspirone 10 mg Tablet 5 mg PO TID Qty: 90 0RF Discharge Orders: Discharge ED (Routine); Ordered 09/30/21 Ordered By: Lizeth Moseley Referrals: Mingo Palmer MD [Primary Care Provider] - Discharge Diet: Advance as tolerated Discharge Activity: Increase activity as tolerated Patient Instructions: Fever in Adults (ED), Cold Symptoms (ED) Activity Restrictions/Additional Instructions: Come back to the emergency room if your symptoms worsen, have any shortness of breath, fever/chills, dehydration, inability tolerate food or drinks, any diff iculty breathing, or any new or concerning complaints. 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
[2021-09-30 20:36] LABS: Anion Gap 14.7 (5-19); Blood Urea Nitrogen 10 mg/dL (6-20); Carbon Dioxide 23 mmol/L (22-29); Chloride 102 mmol/L (98-107); Glucose 100 mg/dL (65-115); Osmolality Calculated 281 mOsm/kg (285-295); Potassium 3.7 mmol/L (3.5-5.1); Sodium 136 mmol/L (136-145)
[2021-09-30] MEDS: iohexol 350 mg/mL 100 mL Btl IV (20:39)
[2021-09-30 21:31] LABS: Influenza A by IFA Negative (Negative); Influenza B by IFA Negative (Negative)
[2021-09-30] MEDS: metoprolol tartrate 1 mg/1 mL SDV 5 mL 5 MG IVP (21:59)
[2021-09-30 22:57] LABS: Adenovirus Not Detected (NOT DETECT); Chlamydia Pneumoniae Not Detected (NOT DETECT); Coronavirus 229E,HKU1,NL63,OC4 Not Detected (NOT DETECT); Human Metapneumovirus Not Detected (NOT DETECT); Human Rhinovirus/Enterovirus Detected (NOT DETECT); Influenza A Not Detected (NOT DETECT); Influenza A H1 Not Detected (NOT DETECT); Influenza A H1-2009 Not Detected (NOT DETECT); Influenza A H3 Not Detected (NOT DETECT); Influenza B Not Detected (NOT DETECT); Mycoplasma Pneumoniae Not Detected (NOT DETECT); Parainfluenza Virus Type 1 Not Detected (NOT DETECT); Parainfluenza Virus Type 2 Not Detected (NOT DETECT); Parainfluenza Virus Type 3 Not Detected (NOT DETECT); Parainfluenza Virus Type 4 Not Detected (NOT DETECT); Respiratory Syncytial Virus A Not Detected (NOT DETECT); Respiratory Syncytial Virus B Not Detected (NOT DETECT); SARS-COV-2 Not Detected (NOT DETECT)
[2021-09-30 22:59] LABS: Troponin T (5th) Once 10 ng/L (0-15)
[2021-09-30 23:16] LABS: Human Metapneumovirus Not Detected (NOT DETECT); Human Rhinovirus/Enterovirus Detected (NOT DETECT); Results from Genmark
[2021-10-01 00:32] LABS: Free T4 Free Thyroxine 0.84 ng/dL (0.82-1.77)
== END 2021-09-30 23:19 | disposition home or self-care (01) ==
PROVIDERS: Emergency Provider Emergency Medicine; PCP Family Medicine
DX: R07.9 Chest pain, unspecified (principal); R05.9 Cough, unspecified; R50.9 Fever, unspecified; R06.02 Shortness of breath; Z20.822 Contact with and (suspected) exposure to COVID-19
CPT/HCPCS: 71046; 71275; 80048; 84439; 84443; 84484; 85025; 87635; 87801; 87804; 93005; 96361; 96374; 99285; J3490; J7030; Q9967

== ENCOUNTER 2021-10-03 23:42 | Emergency (ER) | payer MEDICAID, SELFPAY ==
[2021-10-03 23:43] VITALS: BP 149/86; PULSE 109; RESP 18; TEMP 38.4; O2SAT 96; BMI 43.4
--- NOTE | 2021-10-03 23:57 | XRR_ITS ---
PROCEDURE INFORMATION: Exam: XR Chest Exam date and time: 10/04/2021 12:05 AM Age: 21 years old Clinical indication: Patient HX: C/O cough and fever. States recently diagnosed with viral infection. TECHNIQUE: Imaging protocol: XR of the chest. Views: 1 view. COMPARISON: CR (CHEST, ) 09/30/2021 7:24 PM FINDINGS: Lungs: There are low lung volumes with basilar vascular crowding. No consolidation. Pleural spaces: Unremarkable. No pleural effusion. No pneumothorax. Heart/Mediastinum: Borderline cardiomegaly. Bones/joints: No acute abnormality. XR/XR chest 1V portable [id number] IMPRESSION: No acute findings.
--- NOTE | 2021-10-03 23:59 | ED_ITS ---
HPI - Fever General: Chief Complaint: Fever Stated Complaint: fever Time Seen by Provider: 10/03/21 23:51 History of Present Illness: Patient is a 21-year-old male comes in the ED with fever and cough. Patient was seen here in the ED for same complaint back on September 30. He was diagnosed with a viral infection and was discharged home with some Tylenol. Patient says his symptoms have not improved and he still having fevers. He took a dose of Tylenol this morning. He says his cough is productive of with yellowish sputum. Denies any chest pain, shortness of breath, abdominal pain, nausea/vomiting, bladder or bowel symptoms. Symptoms of cough and congestion have been going on now for little over a week. Associated symptoms: Deny abdominal pain, flank pain, chills, chest pain, diarrhea, dysuria, headache(s), nasal congestion, nausea or vomiting Review of Systems Const: Reports: fever(s); Denies: chills or fatigue Eyes: Denies: change in vision or eye discomfort ENMT: Denies: throat pain, odynophagia, nasal discharge or nasal congestion Card: Denies: chest pain, palpitations, edema, swelling of feet/ankles, dyspnea on exertion or orthopnea Resp: Reports: productive cough; Denies: dyspnea or non-productive cough GI: Denies: abdominal pain, nausea, vomiting, diarrhea, constipation or hematochezia : Denies: flank pain, difficulty urinating, dysuria or hematuria Musc: Denies: neck pain, back pain or extremity swelling Skin/Breast: Denies: rash or new lesions Neuro: Denies: headache(s), numbness in extremities or weakness in extremities [facility] ED PFSH: Medical History No pertinent past medical history Surgical History No pertinent past surgical history Social History Second hand smoke exposure: No Smoking risk assessment/counseling performed?: No Alcohol intake: never Desire information about alcohol rehabilitation?: No Counseling given: No Desire information about substance/drug rehabilitation?: No Counseling given: No Adopted: No Caregiver/support person: No Lives independently: Yes Household members: family Housing: Manufactured/Mobile home Marital status: Single Number of children: 0 Highest education level completed: High School Graduate service: No Current occupational status: disabled History of recent travel: No Physical Exam Const: COMMON NORMALS: no acute distress, patient oriented x3 and alert GENERAL APPEARANCE: cooperative HENMT: COMMON NORMALS: normocephalic HEAD & SCALP: normocephalic MOUTH: Normal oral and palatal mucosa present THROAT: posterior oropharynx normal and uvula midline Neck/C-Spine: COMMON NORMALS: supple GENERAL: Yes normal visual inspection Resp: COMMON NORMALS: normal respiratory effort, No retractions, No use of accessory muscles and clear to auscultation bilaterally AUSCULTATION: clear to auscultation bilaterally Cardio: COMMON NORMALS: regular rate, regular rhythm, S1 normal heart sound present, S2 normal heart sound present, No gallops present (Cardio), No clicks present (Cardio), No murmurs present (Cardio) and Peripheral pulses 2+ throughout RATE: regular rate RHYTHM: regular rhythm HEART SOUNDS: S1 normal heart sound present and S2 normal heart sound present PERIPHERAL PULSES: Peripheral pulses 2+ throughout GI: COMMON NORMALS: Normal to inspection, nondistended, normoactive bowel sounds present, Soft to palpation, non-tender and no masses PALPATION: Yes Soft to palpation : COMMON NORMALS: Yes no CVA tenderness BLADDER/KIDNEY EXAM: Yes no CVA tenderness Back/Pelvis: COMMON NORMALS: no CVA tenderness Extremity: COMMON NORMALS: normal to inspection Neuro: COMMON NORMALS: patient oriented x3 and moves all extremities SENSORIUM/ORIENTATION: Yes alert Skin: GENERAL SKIN EXAM: dry skin Course Vital Signs: Vital signs: Vital Signs Temperature 101.2 F H 10/03/21 23:43 Pulse Rate 109 H 10/03/21 23:43 Respiratory Rate 18 10/03/21 23:43 Blood Pressure 149/86 10/03/21 23:43 Pulse Oximetry 96 10/03/21 23:43 MDM - Fever Medical Decision Making Patient is a 21-year-old male comes to the ED with cough and fever. Patient has been having the symptoms now for a little over a week. He was seen here in the ED for same complaint on September 30 and had a negative COVID and influenza test then. cough is productive with yellow sputum and he has a fever here in the ED. Denies any other symptoms such as chest pain, shortness of breath, nausea or vomiting or diarrhea. Temperature 101 here in the ED with the rest of vitals are stable. Exam of patient is benign. Chest x-ray shows no acute findings. His labs are unremarkable patient diagnosed with acute bronchitis given a dose of azithromycin and Solu-Medrol while here in the ED. He was stable for discharge home and sent with a prescription for Tessalon Perles, azithromycin and Medrol Dosepak. He was told to follow-up with his PCP in the next week for reevaluation. Return to ED precautions given. Patient understood and agreed with plan. Lab Data I reviewed the patient's lab results. : 10/04/21 00:07 10/04/21 00:07 Radiology Impressions Chest X-Ray 10/03/21 23:57 IMPRESSION: No acute findings. Laboratory Results WBC 7.8 10^3/uL (4.0-10.0) 10/04/21 00:07 RBC 4.80 10^6/uL (4.1-5.3) 10/04/21 00:07 Hgb 14.2 g/dL (11.7-16.6) 10/04/21 00:07 Hct 42.1 % (42.0-52.0) 10/04/21 00:07 MCV 87.7 fl (80-94) 10/04/21 00:07 MCH 29.6 pg (28.0-34.0) 10/04/21 00:07 MCHC 33.7 g/dL (30.0-36.0) 10/04/21 00:07 RDW 12.3 % (12.1-15.1) 10/04/21 00:07 Plt Count 252 10^3/cmm (130-400) 10/04/21 00:07 MPV 10.0 fL (7.4-10.4) 10/04/21 00:07 Neut % (Auto) 66.2 % 10/04/21 00:07 Lymph % (Auto) 20.9 % 10/04/21 00:07 [place] % (Auto) 9.3 % 10/04/21 00:07 Eos % (Auto) 2.6 % 10/04/21 00:07 Baso % (Auto) 0.4 % 10/04/21 00:07 Neut # (Auto) 5.18 10^3/uL (1.8-7.7) 10/04/21 00:07 Lymph # (Auto) 1.6 10^3/uL (0.8-4.8) 10/04/21 00:07 [place] # (Auto) 0.7 10^3/uL (0.2-0.9) 10/04/21 00:07 Eos # (Auto) 0.2 10^3/uL (0.0-0.8) 10/04/21 00:07 Baso # (Auto) 0.0 10^3/uL (0.0-0.1) 10/04/21 00:07 Nucleated RBC % (auto) 0 % 10/04/21 00:07 Nucleated RBCs # 0.0 /100WBC 10/04/21 00:07 Sodium 138 mmol/L (136-145) 10/04/21 00:07 Potassium 3.7 mmol/L (3.5-5.1) 10/04/21 00:07 Chloride 104 mmol/L (98-107) 10/04/21 00:07 Carbon Dioxide 23 mmol/L (22-29) 10/04/21 00:07 Anion Gap 14.7 (5-19) 10/04/21 00:07 BUN 12 mg/dL (6-20) 10/04/21 00:07 Creatinine 0.8 mg/dL (0.7-1.2) 10/04/21 00:07 GFR Calculation 122.0 mL/min (90-130) 10/04/21 00:07 Glucose 103 mg/dL (65-115) 10/04/21 00:07 Calculated Osmolality 286 mOsm/kg (285-295) 10/04/21 00:07 Calcium 8.8 mg/dL (8.5-10.5) 10/04/21 00:07 Discharge Plan Discharge Patient Disposition: Home Clinical Impression: Acute bronchitis Qualifiers: Bronchitis organism: unspecified organism Qualified Code(s): J20.9 - Acute bronchitis, unspecified Condition: Stable Prescriptions: New azithromycin 250 mg tablet 250 mg PO DAILY 4 Days Qty: 4 0RF Rx Instructions: start on day 2 of therapy Medrol (Jamshid) 4 mg tablets,dose pack See Rx Instructions .ROUTE .COMPLEX Qty: 21 0RF Rx Instructions: orally per package directions benzonatate 100 mg capsule 100 mg PO Q6H PRN (Reason: cough) Qty: 20 0RF No Action diclofenac sodium 75 mg tablet,delayed release (DR/EC) 75 mg PO BID PRN (Reason: pain) Qty: 30 0RF clindamycin HCl 300 mg capsule 300 mg PO BID 7 Days Qty: 14 0RF citalopram 20 mg Tablet 10 mg PO DAILY Qty: 30 0RF buspirone 10 mg Tablet 5 mg PO TID Qty: 90 0RF acetaminophen 500 mg tablet 500 mg PO Q6H PRN (Reason: pain) 5 Days Qty: 20 0RF Discharge Orders: Discharge ED (Routine); Ordered 10/04/21 Ordered By: Filipe Taylor Referrals: Mingo Palmer MD [Primary Care Provider] - Discharge Diet: Regular Discharge Activity: Increase activity as tolerated Patient Instructions: Acute Bronchitis (ED) Activity Restrictions/Additional Instructions: Follow-up with medical provider as directed in the next 5-7 days for reevaluation. Take medications as prescribed. Drink plenty of fluids and stay hydrated. Take [id number] Tylenol and Motrin for any fevers. Return to the ER or your medical provider if condition worsens. Please read and understand discharge instructions. Thank you for choosing [facility] for your healthcare needs today. Please realize this is an emergency room and that we are providing you with a medical screening exam and this may not be complete and all inclusive of all the testing and or work up that you may need to determine your ailment or severity of your illness. It is very important that you follow up as instructed or that you return to the Emergency Department should you have concerns or if your condition changes or worsens in any way. Coding Level of Care Code ED Police Surgeon for Eyad Fwsarai Exam Comprehensive
[2021-10-04] MEDS: ibuprofen 800 mg tablet PO (00:10)
[2021-10-04 00:15] LABS: Basophils % 0.4 %; Eosinophils # 0.2 10^3/uL (0.0-0.8); Eosinophils % 2.6 %; Hematocrit 42.1 % (42.0-52.0); Hemoglobin 14.2 g/dL (11.7-16.6); Lymphocytes # 1.6 10^3/uL (0.8-4.8); Lymphocytes % 20.9 %; Mean Corpuscular HGB Conc 33.7 g/dL (30.0-36.0); Mean Corpuscular Hemoglobin 29.6 pg (28.0-34.0); Mean Corpuscular Volume 87.7 fl (80-94); Monocytes # 0.7 10^3/uL (0.2-0.9); Monocytes % 9.3 %; Neutrophils # 5.18 10^3/uL (1.8-7.7); Neutrophils % 66.2 %; Nucleated Red Blood Cells % 0 %; Platelet Count 252 10^3/cmm (130-400); Red Cell Distribution Width 12.3 % (12.1-15.1); White Blood Count 7.8 10^3/uL (4.0-10.0)
[2021-10-04 00:38] LABS: Anion Gap 14.7 (5-19); Blood Urea Nitrogen 12 mg/dL (6-20); Calcium 8.8 mg/dL (8.5-10.5); Carbon Dioxide 23 mmol/L (22-29); Chloride 104 mmol/L (98-107); Glucose 103 mg/dL (65-115); Osmolality Calculated 286 mOsm/kg (285-295); Potassium 3.7 mmol/L (3.5-5.1); Sodium 138 mmol/L (136-145)
[2021-10-04] MEDS: azithromycin 250 mg Tablet 500 MG PO (01:23)
[2021-10-04 01:34] VITALS: BP 140/71; PULSE 100; RESP 18; TEMP 36.8; O2SAT 96
== END 2021-10-04 01:35 | disposition home or self-care (01) ==
PROVIDERS: Emergency Provider Physician Assistant; PCP Family Medicine
DX: J20.9 Acute bronchitis, unspecified (principal)
CPT/HCPCS: 71045; 80048; 85025; 87040; 96374; 99284; J2930; Q0144

== ENCOUNTER → 2022-02-28 16:24 | Outpatient (BNVA) | payer MEDICAID, SELFPAY | PROVIDERS: PCP Family Medicine; Visit Provider Nurse Practitioner Family | DX: R51.9 Headache, unspecified (principal); R60.9 Edema, unspecified | CPT/HCPCS: 80053 ==

== ENCOUNTER 2022-04-13 18:34 | Emergency (ER) | payer MEDICAID, SELFPAY ==
[2022-04-13 19:15] LABS: Basophils # 0.1 10^3/uL (0.0-0.1); Basophils % 0.8 %; Eosinophils # 0.7 10^3/uL (0.0-0.8); Eosinophils % 5.3 %; Hematocrit 46.9 % (42.0-52.0); Hemoglobin 15.4 g/dL (11.7-16.6); Lymphocytes # 3.4 10^3/uL (0.8-4.8); Lymphocytes % 24.7 %; Mean Corpuscular HGB Conc 32.8 g/dL (30.0-36.0); Mean Corpuscular Volume 91.2 fl (80-94); Mean Platelet Volume 9.9 fL (7.4-10.4); Monocytes # 0.9 10^3/uL (0.2-0.9); Monocytes % 6.7 %; Neutrophils # 8.39 10^3/uL (1.8-7.7); Neutrophils % 61.8 %; Nucleated Red Blood Cells % 0 %; Platelet Count 328 10^3/cmm (130-400); Red Blood Count 5.14 10^6/uL (4.1-5.3); Red Cell Distribution Width 12.1 % (12.1-15.1); White Blood Count 13.6 10^3/uL (4.0-10.0)
[2022-04-13 19:36] VITALS: BP 137/86; PULSE 83; RESP 15; TEMP 36.6; O2SAT 98; BMI 42.8
[2022-04-13 19:40] LABS: Alanine Aminotransferase 62 U/L (0-41); Alkaline Phosphatase 121 U/L (40-130); Aspartate Amino Transferase 28 U/L (0-40); Blood Urea Nitrogen 7 mg/dL (6-20); Calcium 9.5 mg/dL (8.5-10.5); Carbon Dioxide 27 mmol/L (22-29); Chloride 99 mmol/L (98-107); Globulin 3.3 g/dL (1.3-4.6); Glucose 99 mg/dL (65-115); Lipase 31 U/L (13-60); Osmolality Calculated 278 mOsm/kg (285-295); Sodium 135 mmol/L (136-145); Total Bilirubin 0.2 mg/dL (0.15-1.2); Total Protein 7.3 g/dL (6.6-8.7)
== END 2022-04-13 21:28 | disposition left against medical advice (07) ==
PROVIDERS: Physician Assistant; Emergency Provider Family Medicine; PCP Family Medicine
DX: Z53.21 Procedure and treatment not carried out due to patient leaving prior to being seen by health care provider (principal)
CPT/HCPCS: 36415; 80053; 83690; 85025

== ENCOUNTER → 2023-02-06 10:45 | Outpatient (BNVA) | payer MEDICAID, SELFPAY | PROVIDERS: PCP Nurse Practitioner Family; Visit Provider Nurse Practitioner Family | DX: I10 Essential (primary) hypertension (principal) | CPT/HCPCS: 80053; 80061; 85025 ==

== ENCOUNTER 2023-03-17 18:08 | Emergency (ER) | payer MEDICAID, SELFPAY ==
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
[2023-03-17 18:24] VITALS: BP 151/99; PULSE 103; RESP 16; TEMP 36.7; O2SAT 94; BMI 36.6
--- NOTE | 2023-03-17 18:25 | W.ED.UPPEXIN ---
HPI - Extremity Injury (Upper) General: Chief Complaint: Extremity Injury, Upper Stated Complaint: rt arm injury Time Seen by Provider: 03/17/23 18:09 History of Present Illness: 23-year-old male patient was working on a vehicle today when the engine block slipped off the stand pinning his right elbow and lower arm to the ground. Patient was able to maneuver the arm out from under the engine block. Patient reports some elbow discomfort. Patient is able to maneuver the elbow and arm without obvious difficulty. Patient appears in mild to no pain. Patient appears nontoxic. Review of Systems General: Reports: 10 or more systems reviewed and unremarkable except in HPI and below Musc: Reports: extremity pain PFSH ED PFSH: Medical History (Updated 03/17/23 @ 18:40 by RAFAELA Brito) Anxiety and depression GERD (gastroesophageal reflux disease) Hypertension No pertinent past medical history Surgical History No pertinent past surgical history Social History Smoking and tobacco/nicotine status: former use of tobacco/nicotine Second hand smoke exposure: No Alcohol intake: never Substance/Drug Use: never Adopted: No Caregiver/support person: No Lives independently: Yes Household members: family Housing: Manufactured/Mobile home Marital status: Single Number of children: 0 Highest education level completed: High School Graduate service: No Current occupational status: disabled Physical Exam Const: COMMON NORMALS: alert HENMT: COMMON NORMALS: normocephalic HEAD & SCALP: normocephalic Neck/C-Spine: COMMON NORMALS: full ROM Resp: COMMON NORMALS: normal respiratory effort and clear to auscultation bilaterally AUSCULTATION: clear to auscultation bilaterally Cardio: COMMON NORMALS: regular rate and regular rhythm RATE: regular rate RHYTHM: regular rhythm Extremity: RIGHT UPPER EXTREMITY: Yes elbow joint (Mild tenderness, no obvious deformity) and Yes lower arm (Proximal tenderness, minimal redness, no deformity) Neuro: SENSORIUM/ORIENTATION: Yes alert Skin: TRAUMA: abrasion (Right upper extremity) Course Vital Signs: Vital signs: Vital Signs Temperature 98.0 F 03/17/23 18:24 Pulse Rate 97 03/17/23 18:27 Respiratory Rate 16 03/17/23 18:24 Blood Pressure 151/99 03/17/23 18:24 Pulse Oximetry 99 03/17/23 18:27 Oxygen Delivery Me thod Room Air 03/17/23 18:24 MDM - Extremity Injury (Upper) Medical Decision Making Patient comes in for evaluation of injury to the right upper arm. A engine block came down onto patient's arm pinning it to the ground. Patient reports some proximal forearm tenderness and right elbow tenderness. No obvious deformity is noted. Pulses and sensation are intact distally. Vital signs are normal except for some elevated blood pressure. Differential diagnosis includes not limited to contusion, sprain, fracture, dislocation. X-rays of the elbow and forearm were without any signs of fracture. Reviewed exam with patient with recommendations for treatment for abrasions to the elbow and lower arm. Patient was written for some bacitracin ointment to use on the wounds until healed. Patient was recommended to follow-up with primary care for further instructions. Patient stated understanding and agreed to plan. XR interpretation done by ED provider, pending radiology final review Discharge Plan Discharge Patient Disposition: Home Clinical Impression: Abrasion of arm, right Qualifiers: Encounter type: initial encounter Qualified Code(s): S40.811A - Abrasion of right upper arm, initial encounter Condition: Stable Prescriptions: New bacitracin 500 unit/gram ointment 1 applic topical BID Qty: 28 0RF No Action hydrochlorothiazide 25 mg tablet 25 mg PO DAILY 30 Days Qty: 30 0RF fluoxetine [Prozac] 20 mg capsule 20 mg PO DAILY 30 Days Qty: 30 0RF buspirone 10 mg tablet 5 mg PO TID 30 Days Qty: 45 0RF famotidine [Pepcid] 40 mg tablet 40 mg PO DAILY 30 Days Qty: 30 0RF cetirizine [Zyrtec] 10 mg tablet 10 mg PO DAILY Qty: 30 0RF Discharge Orders: Discharge ED (Routine); Ordered 03/17/23 Ordered By: Thor Alexandra Referrals: Emily Alfaro FNP [Primary Care Provider] - Discharge Diet: Usual diet Discharge Activity: Increase activity as tolerated Patient Instructions: Abrasion (ED) Activity Restrictions/Additional Instructions: Clean wounds twice a day with mild soap and water. Cover wounds then with a topical antibiotic such as bacitracin ointment until healed. Follow-up with primary care as needed. Return to ED for new concerns. Coding Level of Care Code ED Business Development Assistant for Eyad Garcia
[2023-03-17 18:27] VITALS: PULSE 97; O2SAT 99
[2023-03-17] MEDS: tetanus-dipt-pertussis 0.5 mL SDV IM (18:46)
[2023-03-17 18:57] VITALS: BP 151/99; PULSE 97; O2SAT 99
== END 2023-03-17 18:59 | disposition home or self-care (01) ==
PROVIDERS: Emergency Provider Nurse Practitioner Family; PCP Nurse Practitioner Family
DX: S40.811A Abrasion of right upper arm, initial encounter (principal); I10 Essential (primary) hypertension; Z87.891 Personal history of nicotine dependence; Z23 Encounter for immunization; W23.2XXA Caught, crushed, jammed or pinched between a moving and stationary object, initial encounter
CPT/HCPCS: 73080; 73090; 90471; 90715; 99283

== ENCOUNTER 2023-06-14 23:27 | Emergency (ER) | payer MEDICAID, SELFPAY ==
[2023-06-14 23:38] VITALS: BP 125/74; PULSE 117; RESP 18; TEMP 37.1; O2SAT 97; BMI 39.3
[2023-06-15 00:24] LABS: Basophils % 0.2 %; Hematocrit 46.6 % (37-53); Lymphocytes # 1.1 10^3/uL (0.8-4.8); Lymphocytes % 6.8 %; Mean Corpuscular HGB Conc 34.1 g/dL (30-55); Mean Corpuscular Hemoglobin 29.6 pg (27-33); Mean Corpuscular Volume 86.8 fl (82-101); Mean Platelet Volume 9.9 fL (7.4-10.4); Monocytes # 0.8 10^3/uL (0.2-0.9); Monocytes % 4.6 %; Neutrophils # 14.33 10^3/uL (1.8-7.7); Neutrophils % 87.7 %; Nucleated Red Blood Cells % 0 %; Platelet Count 328 10^3/cmm (157-399); Red Blood Count 5.37 10^6/uL (3.85-5.65); Red Cell Distribution Width 12.6 % (12.1-15.1); White Blood Count 16.36 10^3/uL (3.29-11.43)
--- NOTE | 2023-06-15 00:30 | ED_ITS ---
Documented by User: SEAN Landin 06/15/23 01:05 HPI - Nausea/Vomiting/Diarrhea 2 General: Chief complaint: Nausea/Vomiting/Diarrhea Stated complaint: N Time Seen by Provider: 06/15/23 00:08 Source: patient Mode of arrival: ambulatory Limitations: no limitations History of Present Illness: Patient presents emergency department today for evaluation treatment of right upper quadrant and epigastric pain associated with vomiting. Patient reports starting symptoms around 8:00 this morning. He reports about 6 or 7 episodes of vomiting. He reports he has been unable to tolerate anything orally including food or liquids. He tried to take some Pepto-Bismol today but, reports vomiting that up as well. He has not had any diarrhea. He denies fever. He has a headache but denies sore throat, nasal congestion, or cough. Review of Systems 2 General: Reports: 10 or more systems reviewed and unremarkable except in HPI and below PFSH ED 2 PFSH: Medical History GERD (gastroesophageal reflux disease) Anxiety and depression Hypertension No pertinent past medical history Surgical History No pertinent past surgical history Social History Smoking and tobacco/nicotine status: former use of tobacco/nicotine Second hand smoke exposure: No Alcohol intake: never Substance/Drug Use: never Adopted: No Caregiver/support person: No Lives independently: Yes Household members: family Housing: Manufactured/Mobile home Marital status: Single Number of children: 0 Highest education level completed: High School Graduate service: No Current occupational status: disabled Physical Exam 2 Const: COMMON NORMALS: no acute distress, patient oriented x3 and alert O THER: Patient is pleasant, social. Answers his own history. HENMT: COMMON NORMALS: normocephalic, atraumatic, hearing grossly normal bilaterally and moist oral mucous membranes HEAD & SCALP: normocephalic and atraumatic Eye: COMMON NORMALS: Equal, round and reactive pupils present, EOMs intact bilaterally and conjunctivae normal CONJUNCTIVA: Yes conjunctivae normal P UPIL: Yes Equal, round and reactive pupils present Neck/C-Spine: COMMON NORMALS: full ROM and no JVD Lymph: LYMPHATIC: no lymphadenopathy noted Resp: COMMON NORMALS: normal respiratory effort, No retractions, No use of accessory muscles and clear to auscultation bilaterally AUSCULTATION: clear to auscultation bilaterally Cardio: COMMON NORMALS: no JVD, regular rate and regular rhythm RATE: r egular rate RHYTHM: regular rhythm GI: OTHER: Active bowel sounds throughout. Patient is tender to palpation in the right upper quadrant and epigastric region without right lower quadrant tenderness or left lower quadrant tenderness. : COMMON NORMALS: Yes no CVA tenderness BLADDER/KIDNEY EXAM: Yes no CVA tenderness Back/Pelvis: COMMON NORMALS: no CVA tenderness, no thoracic nor lumbar tenderness and thoraco-lumbar ROM normal Extremity: COMMON NORMALS: normal to inspection, full ROM and capillary refill normal Neuro: COMMON NORMALS: patient oriented x3 SENSORIUM/ORIENTATION: Yes alert Psych: COMMON NORMALS: mental status grossly normal, Normal thought process present, cooperative, normal affect and activity/motor behavior normal T HOUGHT PROCESS: Normal thought process present Skin: COMMON NORMALS: no rashes or lesions noted and no wounds GENERAL SKIN EXAM: no rashes or lesions noted Course 2 Vital Signs: Vital signs: Vital Signs Temperature 98.7 F 06/14/23 23:38 Pulse Rate 117 H 06/14/23 23:38 Respiratory Rate 18 06/14/23 23:38 Blood Pressure 125/74 06/14/23 23:38 Pulse Oximetry 97 06/14/23 23:38 Oxygen Delivery Me thod Room Air 06/14/23 23:38 MDM - Nausea/Vomiting/Diarrhea Medical Decision Making Patient presents today for evaluation treatment of multiple episodes of vomiting and abdominal pain. Patient does have an elevated white blood cell count which could be reflective of multiple episodes of vomiting. Patient was provided fluids and antinausea medication. After discussing case with Dr. Guerra, we will proceed on with a CT examination. Transfer of care to Dr. Guerra of this patient at 0100. Lab Data 06/15/23 00:15 06/15/23 00:15 Radiology Impressions Abdomen/Pelvis CT 06/15/23 00:58 IMPRESSION: 1. No free air or significant bowel distention. No evidence for bowel obstruction. 2. No visible gallstones by CT. 3. No hydronephrosis of either kidney. No visible ureteral calculus. 4. Other findings discussed above. Laboratory Results WBC 16.36 10^3/uL (3.29-11.43) H 06/15/23 00:15 RBC 5.37 10^6/uL (3.85-5.65) 06/15/23 00:15 Hgb 15.90 g/dL (11.27-16.99) 06/15/23 00:15 Hct 46.6 % (37-53) 06/15/23 00:15 MCV 86.8 fl (82-101) 06/15/23 00:15 MCH 29.6 pg (27-33) 06/15/23 00:15 MCHC 34.1 g/dL (30-55) 06/15/23 00:15 RDW 12.6 % (12.1-15.1) 06/15/23 00:15 Plt Count 328 10^3/cmm (157-399) 06/15/23 00:15 MPV 9.9 fL (7.4-10.4) 06/15/23 00:15 Neut % (Auto) 87.7 % 06/15/23 00:15 Lymph % (Auto) 6.8 % 06/15/23 00:15 Piatt % (Auto) 4.6 % 06/15/23 00:15 Eos % (Auto) 0.0 % 06/15/23 00:15 Baso % (Auto) 0.2 % 06/15/23 00:15 Neut # (Auto) 14.33 10^3/uL (1.8-7.7) H 06/15/23 00:15 Lymph # (Auto) 1.1 10^3/uL (0.8-4.8) 06/15/23 00:15 Piatt # (Auto) 0.8 10^3/uL (0.2-0.9) 06/15/23 00:15 Eos # (Auto) 0.0 10^3/uL (0.0-0.8) 06/15/23 00:15 Baso # (Auto) 0.0 10^3/uL (0.0-0.1) 06/15/23 00:15 Nucleated RBC % (auto) 0 % 06/15/23 00:15 Nucleated RBCs # 0.0 /100WBC 06/15/23 00:15 Sodium 136 mmol/L (136-145) 06/15/23 00:15 Potassium 3.5 mmol/L (3.5-5.1) 06/15/23 00:15 Chloride 102 mmol/L (98-107) 06/15/23 00:15 Carbon Dioxide 23 mmol/L (22-29) 06/15/23 00:15 Anion Gap 14.5 (5-19) 06/15/23 00:15 BUN 14 mg/dL (6-20) 06/15/23 00:15 Creatinine 0.8 mg/dL (0.7-1.2) 06/15/23 00:15 GFR Calculation 119.8 mL/min (90-130) 06/15/23 00:15 Glucose 118 mg/dL (65-115) H 06/15/23 00:15 Calculated Osmolality 284 mOsm/kg (285-295) L 06/15/23 00:15 Calcium 8.9 mg/dL (8.5-10.5) 06/15/23 00:15 Total Bilirubin 0.5 mg/dL (0.15-1.2) 06/15/23 00:15 AST 15 U/L (0-40) 06/15/23 00:15 ALT 31 U/L (0-41) 06/15/23 00:15 Alkaline Phosphatase 94 U/L (40-130) 06/15/23 00:15 Total Protein 7.4 g/dL (6.6-8.7) 06/15/23 00:15 Albumin 4.0 g/dL (3.5-5.2) 06/15/23 00:15 Globulin 3.4 g/dL (1.3-4.6) 06/15/23 00:15 Urine Color Yellow (Yellow) 06/15/23 00:15 Urine Appearance Sl hazy (CLEAR) A 06/15/23 00:15 Urine pH 5 (5-7) 06/15/23 00:15 Ur Specific [place] 1.025 (1.005-1.030) 06/15/23 00:15 Urine Protein Trace (Negative) 06/15/23 00:15 Urine Glucose (UA) Norm (Normal) 06/15/23 00:15 Urine Ketones Negative (Negative) 06/15/23 00:15 Urine Blood Neg (Negative) 06/15/23 00:15 Urine Nitrate Negative (Negative) 06/15/23 00:15 Urine Bilirubin 1+ (Negative) H 06/15/23 00:15 Urine Urobilinogen Norm mg/dL (Negative) 06/15/23 00:15 Ur Leukocyte Esterase Negative (Negative) 06/15/23 00:15 Urine RBC 0-4 /hpf (0-2) H 06/15/23 00:15 Urine WBC 0-4 /hpf (0-5) H 06/15/23 00:15 Ur Squamous Epith Cells 0-4 /hpf (0-5) H 06/15/23 00:15 Amorphous Sediment Trace /hpf 06/15/23 00:15 Urine Bacteria 1+ /hpf (NONE) H 06/15/23 00:15 Urine Mucus 2+ /hpf 06/15/23 00:15 Influenza Type A Ag negative (Negative) 06/15/23 00:35 Influenza Type B Ag negative (Negative) 06/15/23 00:35 SARS-CoV-2 Ag (Rapid) negative (Negative) 06/15/23 00:35 XR interpretation done by ED provider, pending radiology final review (CT scan pending) Discharge Plan Discharge Patient Disposition: Home Clinical Impression: Abdominal pain Condition: Stable Prescriptions: No Action hydrochlorothiazide 25 mg tablet 25 mg PO DAILY 30 Days Qty: 30 0RF fluoxetine [Prozac] 20 mg capsule 20 mg PO DAILY 30 Days Qty: 30 0RF buspirone 10 mg tablet 5 mg PO TID 30 Days Qty: 45 0RF famotidine [Pepcid] 40 mg tablet 40 mg PO DAILY 30 Days Qty: 30 0RF cetirizine [Zyrtec] 10 mg tablet 10 mg PO DAILY Qty: 30 0RF bacitracin 500 unit/gram ointment 1 applic topical BID Qty: 28 0RF Discharge Orders: Discharge ED (Routine); Ordered 06/15/23 Ordered By: Brielle Guerra Referrals: Emily Alfaro FNP [Primary Care Provider] - 1-3 days Discharge Diet: Advance as tolerated Discharge Activity: Resume usual activity Patient Instructions: Abdominal Pain (ED) Coding Level of Care Code ED Electric Motor Winders Assembler for Chg Fwd Documented by User: Brielle Guerra MD 06/15/23 02:08 HPI - Nausea/Vomiting/Diarrhea 2 General: Chief complaint: Nausea/Vomiting/Diarrhea Stated complaint: N Time Seen by Provider: 06/15/23 00:08 PFSH ED 2 PFSH: Medical History GERD (gastroesophageal reflux disease) Anxiety and depression Hypertension No pertinent past medical history Surgical History No pertinent past surgical history Social History Smoking and tobacco/nicotine status: former use of tobacco/nicotine Second hand smoke exposure: No Alcohol intake: never Substance/Drug Use: never Adopted: No Caregiver/support person: No Lives independently: Yes Household members: family Housing: Manufactured/Mobile home Marital status: Single Number of children: 0 Highest education level completed: High School Graduate service: No Current occupational status: disabled Course 2 Vital Signs: Vital signs: Vital Signs Temperature 98.7 F 06/14/23 23:38 Pulse Rate 117 H 06/14/23 23:38 Respiratory Rate 18 06/14/23 23:38 Blood Pressure 125/74 06/14/23 23:38 Pulse Oximetry 97 06/14/23 23:38 Oxygen Delivery Me thod Room Air 06/14/23 23:38 MDM - Nausea/Vomiting/Diarrhea Medical Decision Making Patient presents today for evaluation treatment of multiple episodes of vomiting and abdominal pain. Patient does have an elevated white blood cell count which could be reflective of multiple episodes of vomiting. Patient was provided fluids and antinausea medication. After discussing case with Dr. Guerra, we will proceed on with a CT examination. Transfer of care to Dr. Guerra of this patient at 0100. Patient CT was negative abdominal exam at discharge is benign he is stable for discharge his follow-up with PCP and return if worsening. Medical Records I reviewed the patient's medical records. Lab Data I reviewed the patient's lab results. 06/15/23 00:15 06/15/23 00:15 Radiology Impressions Abdomen/Pelvis CT 06/15/23 00:58 IMPRESSION: 1. No free air or significant bowel distention. No evidence for bowel obstruction. 2. No visible gallstones by CT. 3. No hydronephrosis of either kidney. No visible ureteral calculus. 4. Other findings discussed above. Laboratory Results WBC 16.36 10^3/uL (3.29-11.43) H 06/15/23 00:15 RBC 5.37 10^6/uL (3.85-5.65) 06/15/23 00:15 Hgb 15.90 g/dL (11.27-16.99) 06/15/23 00:15 Hct 46.6 % (37-53) 06/15/23 00:15 MCV 86.8 fl (82-101) 06/15/23 00:15 MCH 29.6 pg (27-33) 06/15/23 00:15 MCHC 34.1 g/dL (30-55) 06/15/23 00:15 RDW 12.6 % (12.1-15.1) 06/15/23 00:15 Plt Count 328 10^3/cmm (157-399) 06/15/23 00:15 MPV 9.9 fL (7.4-10.4) 06/15/23 00:15 Neut % (Auto) 87.7 % 06/15/23 00:15 Lymph % (Auto) 6.8 % 06/15/23 00:15 Piatt % (Auto) 4.6 % 06/15/23 00:15 Eos % (Auto) 0.0 % 06/15/23 00:15 Baso % (Auto) 0.2 % 06/15/23 00:15 Neut # (Auto) 14.33 10^3/uL (1.8-7.7) H 06/15/23 00:15 Lymph # (Auto) 1.1 10^3/uL (0.8-4.8) 06/15/23 00:15 Piatt # (Auto) 0.8 10^3/uL (0.2-0.9) 06/15/23 00:15 Eos # (Auto) 0.0 10^3/uL (0.0-0.8) 06/15/23 00:15 Baso # (Auto) 0.0 10^3/uL (0.0-0.1) 06/15/23 00:15 Nucleated RBC % (auto) 0 % 06/15/23 00:15 Nucleated RBCs # 0.0 /100WBC 06/15/23 00:15 Sodium 136 mmol/L (136-145) 06/15/23 00:15 Potassium 3.5 mmol/L (3.5-5.1) 06/15/23 00:15 Chloride 102 mmol/L (98-107) 06/15/23 00:15 Carbon Dioxide 23 mmol/L (22-29) 06/15/23 00:15 Anion Gap 14.5 (5-19) 06/15/23 00:15 BUN 14 mg/dL (6-20) 06/15/23 00:15 Creatinine 0.8 mg/dL (0.7-1.2) 06/15/23 00:15 GFR Calculation 119.8 mL/min (90-130) 06/15/23 00:15 Glucose 118 mg/dL (65-115) H 06/15/23 00:15 Calculated Osmolality 284 mOsm/kg (285-295) L 06/15/23 00:15 Calcium 8.9 mg/dL (8.5-10.5) 06/15/23 00:15 Total Bilirubin 0.5 mg/dL (0.15-1.2) 06/15/23 00:15 AST 15 U/L (0-40) 06/15/23 00:15 ALT 31 U/L (0-41) 06/15/23 00:15 Alkaline Phosphatase 94 U/L (40-130) 06/15/23 00:15 Total Protein 7.4 g/dL (6.6-8.7) 06/15/23 00:15 Albumin 4.0 g/dL (3.5-5.2) 06/15/23 00:15 Globulin 3.4 g/dL (1.3-4.6) 06/15/23 00:15 Urine Color Yellow (Yellow) 06/15/23 00:15 Urine Appearance Sl hazy (CLEAR) A 06/15/23 00:15 Urine pH 5 (5-7) 06/15/23 00:15 Ur Specific [place] 1.025 (1.005-1.030) 06/15/23 00:15 Urine Protein Trace (Negative) 06/15/23 00:15 Urine Glucose (UA) Norm (Normal) 06/15/23 00:15 Urine Ketones Negative (Negative) 06/15/23 00:15 Urine Blood Neg (Negative) 06/15/23 00:15 Urine Nitrate Negative (Negative) 06/15/23 00:15 Urine Bilirubin 1+ (Negative) H 06/15/23 00:15 Urine Urobilinogen Norm mg/dL (Negative) 06/15/23 00:15 Ur Leukocyte Esterase Negative (Negative) 06/15/23 00:15 Urine RBC 0-4 /hpf (0-2) H 06/15/23 00:15 Urine WBC 0-4 /hpf (0-5) H 06/15/23 00:15 Ur Squamous Epith Cells 0-4 /hpf (0-5) H 06/15/23 00:15 Amorphous Sediment Trace /hpf 06/15/23 00:15 Urine Bacteria 1+ /hpf (NONE) H 06/15/23 00:15 Urine Mucus 2+ /hpf 06/15/23 00:15 Influenza Type A Ag negative (Negative) 06/15/23 00:35 Influenza Type B Ag negative (Negative) 06/15/23 00:35 SARS-CoV-2 Ag (Rapid) negative (Negative) 06/15/23 00:35 Discharge Plan Discharge Patient Disposition: Home Clinical Impression: Abdominal pain Condition: Stable Prescriptions: No Action hydrochlorothiazide 25 mg tablet 25 mg PO DAILY 30 Days Qty: 30 0RF fluoxetine [Prozac] 20 mg capsule 20 mg PO DAILY 30 Days Qty: 30 0RF buspirone 10 mg tablet 5 mg PO TID 30 Days Qty: 45 0RF famotidine [Pepcid] 40 mg tablet 40 mg PO DAILY 30 Days Qty: 30 0RF cetirizine [Zyrtec] 10 mg tablet 10 mg PO DAILY Qty: 30 0RF bacitracin 500 unit/gram ointment 1 applic topical BID Qty: 28 0RF Discharge Orders: Discharge ED (Routine); Ordered 06/15/23 Ordered By: Brielle Guerra Referrals: Emily Alfaro, CHILD AND ADOLESCENT PSYCHOLOGIST [Primary Care Provider] - 1-3 days Discharge Diet: Advance as tolerated Discharge Activity: Resume usual activity Patient Instructions: Abdominal Pain (ED) Coding Level of Care Code ED Electric Motor Wind[employer] Assembler for Eyad Garcia
[2023-06-15 00:51] LABS: Add Urine Microscopic? YES; Bilirubin Urine 1+ (Negative); Blood Urine Neg (Negative); Glucose Urine UA Norm (Normal); Ketones Urine Negative (Negative); Leukocyte Esterase Urine Negative (Negative); Nitrate Urine Negative (Negative); Protein Urine Trace (Negative); Specific Gravity, Urine 1.025 (1.005-1.030); Urine Appearance SL Hazy (CLEAR); Urine Color Yellow (Yellow); Urobilinogen Urine Norm (Negative); pH Urine 5 (5-7)
[2023-06-15 00:52] LABS: Amorphous Sediment Urine TRACE /hpf; Bacteria Urine 1+ /hpf; Mucus Urine 2+ /hpf; RBC Urine 0-4 /hpf (0-2); Squamous Epithelial Cell Urine 0-4 /hpf (0-5); WBC Urine 0-4 /hpf (0-5)
[2023-06-15 00:53] LABS: Alanine Aminotransferase 31 U/L (0-41); Alkaline Phosphatase 94 U/L (40-130); Anion Gap 14.5 (5-19); Aspartate Amino Transferase 15 U/L (0-40); Blood Urea Nitrogen 14 mg/dL (6-20); Calcium 8.9 mg/dL (8.5-10.5); Carbon Dioxide 23 mmol/L (22-29); Chloride 102 mmol/L (98-107); Globulin 3.4 g/dL (1.3-4.6); Glomerular Filtration Rate 119.8 mL/min (90-130); Glucose 118 mg/dL (65-115); Osmolality Calculated 284 mOsm/kg (285-295); Potassium 3.5 mmol/L (3.5-5.1); Sodium 136 mmol/L (136-145); Total Bilirubin 0.5 mg/dL (0.15-1.2); Total Protein 7.4 g/dL (6.6-8.7)
[2023-06-15] MEDS: sodium chloride 0.9% 1,000 ML 999 ML IV (00:54)
[2023-06-15] MEDS: metoclopramide 5 mg/mL SDV 2 mL 10 MG IVP (00:56)
--- NOTE | 2023-06-15 00:58 | CTR_ITS ---
PROCEDURE INFORMATION: Exam: CT Abdomen And Pelvis With Contrast Exam date and time: 06/15/2023 1:14 AM Age: 23 years old Clinical indication: Nausea and vomiting; Abdominal pain; Localized; Prior surgery; Surgery date: 6+ months; Surgery type: Appy; Patient HX: Upper abd pain with n/v. ; Additional info: Abd pain, vomiting, mult vomiting episodes, epigastric and ruq pain TECHNIQUE: Imaging protocol: Computed tomography of the abdomen and pelvis with contrast. Radiation optimization: All CT scans at this facility use at least one of these dose optimization techniques: automated exposure control; mA and/or kV adjustment per patient size (includes targeted exams where dose is matched to clinical indication); or iterative reconstruction. Contrast material: OMNI 350; Contrast volume: 100 ml; Contrast route: INTRAVENOUS (IV); COMPARISON: No relevant prior studies available. RADIATION DOSE METRICS: Total DLP (mGy-cm): 1819.39 FINDINGS: Lungs: The lung bases are clear. Liver: Unremarkable. Gallbladder and bile ducts: No visible gallstones or other definite gallbladder abnormality by CT. Ultrasound would be more sensitive for detecting gallstones, if clinically needed. No biliary tree dilation. Pancreas: Unremarkable. Spleen: Unremarkable. Adrenal glands: Unremarkable. Kidneys and ureters: No hydronephrosis of either kidney. No visible ureteral calculus. No perinephric fluid. The kidneys enhance homogeneously. Stomach and bowel: No significant bowel distention. There are no CT findings to strongly suggest diverticulitis or colitis. Appendix: Reportedly, there has been prior appendectomy. Intraperitoneal space: No free intraperitoneal air, or ascites. Vasculature: No evidence for abdominal aortic aneurysm. Lymph nodes: No retroperitoneal adenopathy. Urinary bladder: No visible calculus in the urinary bladder. Reproductive: Essentially unremarkable for age. Bones/joints: No significant acute finding. Soft tissues: No significant acute finding. CT/CT abdomen pelvis w con* [id number] IMPRESSION: 1. No free air or significant bowel distention. No evidence for bowel obstruction. 2. No visible gallstones by CT. 3. No hydronephrosis of either kidney. No visible ureteral calculus. 4. Other findings discussed above.
[2023-06-15 01:00] LABS: Influenza A by IFA negative (Negative); Influenza B by IFA negative (Negative); SARS Covid-2 Antigen negative (Negative)
[2023-06-15] MEDS: iohexol 350 mg/mL 500 mL Btl (per mL) IV (01:16)
[2023-06-15 02:20] VITALS: BP 125/74; PULSE 117; RESP 18; TEMP 37.1; O2SAT 97
== END 2023-06-15 02:22 | disposition home or self-care (01) ==
PROVIDERS: Physician Assistant; Emergency Provider Emergency Medicine; PCP Nurse Practitioner Family
DX: R10.13 Epigastric pain (principal); R10.9 Unspecified abdominal pain
CPT/HCPCS: 74177; 80053; 81001; 85025; 87426; 87804; 96361; 96374; 99285; J2765; J7030; Q9967

== ENCOUNTER 2023-10-23 | Emergency (ER) | payer MEDICAID, SELFPAY ==
[2023-10-23 00:02] VITALS: BP 140/76; PULSE 97; RESP 18; TEMP 37.1; O2SAT 98
--- NOTE | 2023-10-23 00:18 | XRR_ITS ---
PROCEDURE INFORMATION: Exam: XR Chest Exam date and time: 10/23/2023 12:23 AM Age: 23 years old Clinical indication: Cough; Additional info: Cough, dyspnea TECHNIQUE: Imaging protocol: Radiologic exam of the chest. Views: 1 view. COMPARISON: CR XR chest 1V portable [id number] 10/04/2021 12:05 AM FINDINGS: Lungs: Unremarkable. No consolidation. Pleural spaces: Unremarkable. No pleural effusion. No pneumothorax. Heart/Mediastinum: Unremarkable. No cardiomegaly. Bones/joints: Unremarkable. XR/XR chest 1V portable [id number] IMPRESSION: No acute findings.
[2023-10-23] MEDS: albuterol 2.5 mg/3 mL Neb INHALATION (00:33)
[2023-10-23 00:34] VITALS: PULSE 94; RESP 16; O2SAT 95
[2023-10-23] MEDS: guaiFENesin-codeine UDC 10 mL PO (00:41)
[2023-10-23] MEDS: dexamethasone 10 mg/mL INJ IM (00:41)
--- NOTE | 2023-10-23 01:01 | W.ED.URI ---
HPI - URI/Sore Throat General: Chief Complaint: Upper Respiratory Infection Stated Complaint: cough sob Time Seen by Provider: 10/23/23 00:03 History of Present Illness: 23-year-old man with a history of obesity who presents to the emergency room with cough for 2 weeks. It is gotten worse over the last 2 weeks and tonight he could not even eat because he continued to cough. No fevers. He feels somewhat short of breath. No history of asthma or COPD. Has some mild wheeze on exam. Frequent cough. No altered mental status. No nausea or vomiting. Review of Systems Narrative: Constitutional symptoms: Negative except as documented in HPI. Skin symptoms: Negative except as documented in HPI. Eye symptoms: Negative except as documented in HPI. ENMT symptoms: Negative except as documented in HPI. Respiratory symptoms: Negative except as documented in HPI. Cardiovascular symptoms: Negative except as documented in HPI. Gastrointestinal symptoms: Negative except as documented in HPI. Genitourinary symptoms: Negative except as documented in HPI. Musculoskeletal symptoms: Negative except as documented in HPI. Neurologic symptoms: Negative except as documented in HPI. Psychiatric symptoms: Negative except as documented in HPI. Endocrine symptoms: Negative except as documented in HPI. PFSH ED PFSH: Medical History GERD (gastroesophageal reflux disease) Anxiety and depression Hypertension No pertinent past medical history Surgical History No pertinent past surgical history Social History Smoking and tobacco/nicotine status: former use of tobacco/nicotine Second hand smoke exposure: No Alcohol intake: never Substance/Drug Use: never Adopted: No Caregiver/support person: No Lives independently: Yes Household members: family Housing: Manufactured/Mobile home Marital status: Single Number of children: 0 Highest education level completed: High School Graduate service: No Current occupational status: disabled Physical Exam Narrative: EXAM NARRATIVE: General: Alert, no acute distress. Skin: Warm, dry. Head: Normocephalic, atraumatic. Neck: Supple, trachea midline. Eye: Extraocular movements are intact. Ears, nose, mouth and throat: mucosa moist. Cardiovascular: Regular, Normal peripheral perfusion. Respiratory: Tachypnea, frequent cough, mild wheeze. No increased work of breathing Gastrointestinal: Soft, Nontender, Non distended, Normal bowel sounds. Musculoskeletal: Normal ROM, no deformity. Neurological: Alert and oriented, No focal neurological deficit observed. Psychiatric: Cooperative, appropriate mood & affect. Course Vital Signs: Vital signs: Vital Signs Temperature 98.7 F 10/23/23 00:02 Pulse Rate 94 10/23/23 00:34 Respiratory Rate 16 10/23/23 00:34 Blood Pressure 140/76 10/23/23 00:02 Pulse Oximetry 95 10/23/23 00:34 Oxygen Delivery Me thod Room Air 10/23/23 00:34 MDM - URI/Sore Throat Medical Decision Making Medical decision making: Differential diagnosis including but not limited to and based on the above HPI, review of systems and physical exam: Chest x-ray ordered to rule out pneumonia. Orders placed to evaluate differential diagnosis based on the above differential, HPI and physical exam Chest x-ray: No acute process. No infiltrate. No pneumothorax. No cardiomegaly. This was reviewed and interpreted by myself the ER physician. I reviewed the patient's medical record. Reexamination: Patient's cough has improved slightly. No increased work of breathing. No altered mental status. Assessment and plan: Bronchitis ? IM Decadron, p.o. codeine/guaifenesin, updraft - Discharged home - Discussed plan with patient. Answered any questions. - Evaluation and treatment of this problem were appropriate in the emergency setting. All radiology interpretation(s) finalized by discharge Discharge Plan Discharge Patient Disposition: Home Clinical Impression: Bronchitis Condition: Stable Prescriptions: New prednisone 20 mg tablet 60 mg PO DAILY Qty: 20 0RF Rx Instructions: 3 tabs (60 mg) x 3 days. 2 tabs (40 mg) x 3 days. 1 tab (20 mg) x 3 days. 1/2 tab (10 mg) x 4 days doxycycline monohydrate 100 mg capsule 100 mg PO BID 10 Days Qty: 20 0RF Ventolin HFA 90 mcg/actuation HFA aerosol inhaler 1 inh inhalation Q4H PRN (Reason: shortness of breath or wheezing) Qty: 6.7 0RF benzonatate 200 mg capsule 200 mg PO TID PRN (Reason: cough) Qty: 30 0RF No Action hydrochlorothiazide 25 mg tablet 25 mg PO DAILY 30 Days Qty: 30 0RF fluoxetine [Prozac] 20 mg capsule 20 mg PO DAILY 30 Days Qty: 30 0RF buspirone 10 mg tablet 5 mg PO TID 30 Days Qty: 45 0RF famotidine [Pepcid] 40 mg tablet 40 mg PO DAILY 30 Days Qty: 30 0RF cetirizine [Zyrtec] 10 mg tablet 10 mg PO DAILY Qty: 30 0RF bacitracin 500 unit/gram ointment 1 applic topical BID Qty: 28 0RF Discharge Orders: Discharge ED (Routine); Ordered 10/23/23 Ordered By: Zhane Dorado Referrals: Emily Alfaro FNP [Primary Care Provider] - 4-7 days Discharge Diet: Usual diet Discharge Activity: Resume usual activity Patient Instructions: Acute Bronchitis (ED) Activity Restrictions/Additional Instructions: Thank you for choosing [facility] for your healthcare needs today. Please realize this is an emergency room and that we are providing you with a medical screening exam and this may not be complete and all inclusive of all the testing and or work up that you may need to determine your ailment or severity of your illness. You have been screened and evaluated and felt safe for discharge. Health conditions do change or evolve sometimes and as such it is important that you follow up with your Primary Doctor to be re checked, 3-5 days is a general good time frame for follow up. You are always welcome to return to the ED for re assessment if your symptoms are worsening or you have new concerns Coding Level of Care Code ED Senior Administrative Services Officer for Eyad Garcia
[2023-10-23 01:49] VITALS: PULSE 88; RESP 18; O2SAT 96
== END 2023-10-23 01:51 | disposition home or self-care (01) ==
PROVIDERS: Emergency Provider Emergency Medicine; PCP Nurse Practitioner Family
DX: J40 Bronchitis, not specified as acute or chronic (principal); I10 Essential (primary) hypertension; Z87.891 Personal history of nicotine dependence
CPT/HCPCS: 71045; 94640; 96372; 99284; J1100; J7613

== ENCOUNTER → 2024-09-21 14:29 | Outpatient (BNVA) | payer MEDICARE, MEDICAID, SELFPAY | PROVIDERS: PCP Nurse Practitioner Family; Visit Provider Nurse Practitioner Family | DX: I10 Essential (primary) hypertension (principal); R73.9 Hyperglycemia, unspecified; R60.9 Edema, unspecified | CPT/HCPCS: 80053; 80061; 83036; 83735; 84443; 85025 ==

== ENCOUNTER → 2024-09-28 14:43 | Outpatient (BNVA) | payer MEDICARE, MEDICAID, SELFPAY | PROVIDERS: PCP Nurse Practitioner Family; Visit Provider Nurse Practitioner Family | DX: I10 Essential (primary) hypertension (principal) | CPT/HCPCS: 80048 ==